=== PATIENT | female | born 1935 | race Caucasian/White ===

== ENCOUNTER 2018-01-10 17:49 | Inpatient (IN) | payer MEDICARE, BC ==
[~2018-01-10 17:49] MED LIST: metroNIDAZOLE/Normal Saline 500 MG in Premix Bag 1 BAG IV SCH
[2018-01-10] MEDS ORDERED: Sodium Chloride 0.9% 10 ML Syringe FLUSH PRN (18:30)
[2018-01-10] MEDS ORDERED: Sodium Chloride 0.9% 2.5 ML Syringe FLUSH PRN (18:30)
--- NOTE | 2018-01-10 18:33 | EDM.PDOC ---
ED HPI GENERAL MEDICAL PROBLEM - General Chief Complaint: Genitourinary Problem Stated Complaint: BLOOD IN URINE/LIGHT HEADED Time Seen by Provider: 01/10/18 18:26 - History of Present Illness INITIAL COMMENTS - FREE TEXT/NARRATIVE: HISTORY AND PHYSICAL: History of present illness: Patient is an 82-year-old white female history of atrial fibrillation who is on Maribell Eitzen presents with a concern of presumptive blood from her rectum she states she had a bowel movement in wiped and noticed that the water was somewhat bloody do not believe this is from her vagina or bladder. She has not had similar problems in the past she denies chest pain shortness of breath nausea vomiting abdominal pain or any other concern. Review of systems: As per history of present illness and below otherwise all systems reviewed and negative. Past medical history: As per history of present illness and as reviewed below otherwise noncontributory. Surgical history: As per history of present illness and as reviewed below otherwise noncontributory. Social history: No reported history of drug or alcohol abuse. Family history: As per history of present illness and as reviewed below otherwise noncontributory. Physical exam: HEENT: Atraumatic, normocephalic, pupils reactive, negative for conjunctival pallor or scleral icterus, mucous membranes moist, throat clear, neck supple, nontender, trachea midline. Lungs: Clear to auscultation, breath sounds equal bilaterally, chest nontender. Heart: S1S2, irregular, negative for clicks, rubs, or JVD. Abdomen: Soft, nondistended, nontender. Negative for masses or hepatosplenomegaly. Negative for costovertebral tenderness. Pelvis: Stable nontender. Genitourinary: Deferred. Rectal: Deferred. Extremities: Atraumatic, negative for cords or calf pain. Neurovascular unremarkable. Neuro: Awake, alert, oriented. Cranial nerves II through XII unremarkable. Cerebellum unremarkable. Motor and sensory unremarkable throughout. Exam nonfocal. Diagnostics: CBC CMP PT/INR UA urine culture and sensitivity chest x-ray CT abdomen and pelvis EKG Therapeutics: Saline at 125 mL an hour Impression: #1 history of blood per rectum #2 history of chronic atrial fibrillation Definitive disposition and diagnosis as appropriate pending reevaluation and review of above. - Related Data Allergies Allergy/AdvReac Type Severity Reaction Status Date / Time Penicillins Allergy Swelling Verified 03/16/18 19:35 pimecrolimus [From Elidel] Allergy Hives Verified 01/10/18 19:35 warfarin Allergy Lethargy Verified 01/10/18 19:35 clorimazole Allergy Itching Uncoded 07/07/16 04:20 Home Meds: Home Meds Aspirin 81 mg PO DAILY 07/07/16 [History] Calcium Phosphate Trib/Vit D3 [Calcium + Vitamin D3 Gummies] 1 each PO DAILY 08/12 [History] LORazepam 1 mg PO DAILY 07/07/16 [History] Levothyroxine Sodium [Synthroid] 125 mcg PO DAILY 07/07/16 [History] Loratadine [Claritin] 10 mg PO DAILY 07/07/16 [History] Lutein/Minerals/Vit A,C & E [Ocuvite] 1 tab PO DAILY 07/07/16 [History] Mometasone Furoate [Nasonex [place]] 17 gm ESTER DAILY 07/07/16 [History] Raloxifene [Evista] 60 mg PO DAILY 07/07/16 [History] Apixaban [Eliquis] 2 tab PO DAILY 01/10/18 [History] Diltiazem HCl [Diltiazem 24Hr Cd] 120 mg PO DAILY 01/10/18 [History] Famotidine [Pepcid] 20 mg PO BID 01/10/18 [History] Triamcinolone Acetonide [Triamcinolone Acetonide 0.025%] TOP BID 01/10/18 [ History] Past Medical History HEENT History: Reports: None Cardiovascular History: Reports: Hypertension, Other (See Below) Other Cardiovascular History: moderate to severe mitral valve heart leak Respiratory History: Reports: None Gastrointestinal History: Reports: GERD 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: Musculoskeletal History: Reports: None Neurological History: Reports: None Psychiatric History: Reports: None Endocrine/Metabolic History: Reports: Hypothyroidism Hematologic History: Reports: None Immunologic History: Reports: None Oncologic (Cancer) History: Reports: None Dermatologic History: Reports: None - Infectious Disease History Infectious Disease History: Reports: None - Past Surgical History Female Surgical History: Reports: Other (See Below) Musculoskeletal Surgical History: Reports: Carpal Tunnel, Other (See Below) Social & Family History - Family History Cardiac: Reports: Afib, Heart Failure, Hypertension, [place], Stent Musculoskeletal: Reports: Osteoporosis Endocrine/Metabolic: Reports: Diabetes, type II - Tobacco Use Smoking Status *Q: Never Smoker - Recreational Drug Use Recreational Drug Use: No ED ROS GENERAL - Review of Systems Review Of Systems: ROS reveals no pertinent complaints other than HPI. ED EXAM, GENERAL - Physical Exam Exam: See Below (See dictation) Course - Vital Signs Last Recorded V/S: Last Vital Signs Temp 36.2 C 01/10/18 20:34 Pulse 74 01/10/18 20:34 Resp 18 01/10/18 20:34 BP 142/57 H 01/10/18 20:34 Pulse Ox 97 01/10/18 20:34 - Orders/Labs/Meds Orders: Active Orders 24 hr Category Date Time Status EKG Documentation Completion [RC] STAT Care 01/10/18 18:29 Active Pulse Oximetry [RC] ASDIRECTED Care 01/10/18 18:29 Active Abdomen Pelvis wo Cont [CT] Stat Exams 01/10/18 18:30 Taken Chest 1V Frontal [CR] Stat Exams 01/10/18 18:30 Taken CULTURE URINE [RM] Stat Lab 01/10/18 19:47 Received Ciprofloxacin in D5W [Cipro in D5W 400 MG/200 ML] 400 Med 01/10/18 21:26 Active mg Premix Bag 1 bag IV NOW Sodium Chloride 0.9% [Normal Saline] 1,000 ml Med 01/10/18 18:30 Active IV STAT Sodium Chloride 0.9% [Saline Flush] Med 01/10/18 18:30 Active 10 ml FLUSH ASDIRECTED PRN Sodium Chloride 0.9% [Saline Flush] Med 01/10/18 18:30 Active 2.5 ml FLUSH ASDIRECTED PRN metroNIDAZOLE/Normal Saline [Flagyl 500 MG in NS 100 ML Med 01/10/18 21:27 Active ] 500 mg Premix Bag 1 bag IV ONETIME Saline Lock Insert [OM.PC] Stat Oth 01/10/18 18:29 Ordered Medication Orders Sodium Chloride (Normal Saline) 1,000 mls @ 125 mls/hr IV STAT JC Last Admin: 01/10/18 18:55 Dose: 125 mls/hr Ciprofloxacin/Dextrose 400 mg/ (Premix) 200 mls @ 200 mls/hr IV NOW STA Stop: 01/10/18 22:25 Metronidazole 500 mg/ Premix 100 mls @ 100 mls/hr IV ONETIME ONE Stop: 01/10/18 22:26 Sodium Chloride (Saline Flush) 10 ml FLUSH ASDIRECTED PRN PRN Reason: Keep Vein Open Sodium Chloride (Saline Flush) 2.5 ml FLUSH ASDIRECTED PRN PRN Reason: Keep Vein Open Labs: Laboratory Tests 01/10/18 01/10/18 01/10/18 Range/Units 18:37 18:37 18:37 WBC 15.03 H (4.0-11.0) K/uL RBC 4.47 (4.30-5.90) M/uL Hgb 14.0 (12.0-16.0) g/dL Hct 41.2 (36.0-46.0) % MCV 92.2 (80.0-98.0) fL MCH 31.3 (27.0-32.0) pg MCHC 34.0 (31.0-37.0) g/dL RDW Std Deviation 48.3 (28.0-62.0) fl RDW Coeff of [place] 14 (11.0-15.0) % Plt Count 290 (150-400) K/uL MPV 10.20 (7.40-12.00) fL Neut % (Auto) 75.9 (48.0-80.0) % Lymph % (Auto) 13.2 L (16.0-40.0) % [place] % (Auto) 9.9 (0.0-15.0) % Eos % (Auto) 0.7 (0.0-7.0) % Baso % (Auto) 0.3 (0.0-1.5) % Neut # (Auto) 11.4 H (1.4-5.7) K/uL Lymph # (Auto) 2.0 (0.6-2.4) K/uL [place] # (Auto) 1.5 H (0.0-0.8) K/uL Eos # (Auto) 0.1 (0.0-0.7) K/uL Baso # (Auto) 0.0 (0.0-0.1) K/uL Nucleated RBC % 0.0 /100WBC Nucleated RBCs # 0 K/uL INR 0.98 Sodium 137 (136-145) mmol/L Potassium 4.3 (3.5-5.1) mmol/L Chloride 102 (98-107) mmol/L Carbon Dioxide 25.6 (21.0-32.0) mmol/L BUN 17 (7.0-18.0) mg/dL Creatinine 0.8 (0.6-1.0) mg/dL Est Cr Clr Drug Dosing TNP Estimated GFR (MDRD) > 60.0 ml/min Glucose 104 (74-106) mg/dL Calcium 9.1 (8.5-10.1) mg/dL Total Bilirubin 0.3 (0.2-1.0) mg/dL AST 19 (15-37) IU/L ALT 17 (14-63) IU/L Alkaline Phosphatase 59 (46-116) U/L Total Protein 7.6 (6.4-8.2) g/dL Albumin 3.6 (3.4-5.0) g/dL Globulin 4.0 H (2.0-3.5) g/dL Albumin/Globulin Ratio 0.9 L (1.3-2.8) Urine Color Urine Appearance Urine pH (5.0-8.0) Ur Specific [place] (1.001-1.035) Urine Protein (NEGATIVE) mg/dL Urine Glucose (UA) (NEGATIVE) mg/dL Urine Ketones (NEGATIVE) mg/dL Urine Occult Blood (NEGATIVE) Urine Nitrite (NEGATIVE) Urine Bilirubin (NEGATIVE) Urine Urobilinogen (<2.0) EU/dL Ur Leukocyte Esterase (NEGATIVE) Urine RBC (0-2/HPF) Urine WBC (0-5/HPF) Ur Epithelial Cells (NONE-FEW) Urine Bacteria (NEGATIVE) Urine Mucus (NONE-MOD) Blood Type Antibody Screen 01/10/18 01/10/18 Range/Units 18:37 19:47 WBC (4.0-11.0) K/uL RBC (4.30-5.90) M/uL Hgb (12.0-16.0) g/dL Hct (36.0-46.0) % MCV (80.0-98.0) fL MCH (27.0-32.0) pg MCHC (31.0-37.0) g/dL RDW Std Deviation (28.0-62.0) fl RDW Coeff of [place] (11.0-15.0) % Plt Count (150-400) K/uL MPV (7.40-12.00) fL Neut % (Auto) (48.0-80.0) % Lymph % (Auto) (16.0-40.0) % [place] % (Auto) (0.0-15.0) % Eos % (Auto) (0.0-7.0) % Baso % (Auto) (0.0-1.5) % Neut # (Auto) (1.4-5.7) K/uL Lymph # (Auto) (0.6-2.4) K/uL [place] # (Auto) (0.0-0.8) K/uL Eos # (Auto) (0.0-0.7) K/uL Baso # (Auto) (0.0-0.1) K/uL Nucleated RBC % /100WBC Nucleated RBCs # K/uL INR Sodium (136-145) mmol/L Potassium (3.5-5.1) mmol/L Chloride (98-107) mmol/L Carbon Dioxide (21.0-32.0) mmol/L BUN (7.0-18.0) mg/dL Creatinine (0.6-1.0) mg/dL Est Cr Clr Drug Dosing Estimated GFR (MDRD) ml/min Glucose (74-106) mg/dL Calcium (8.5-10.1) mg/dL Total Bilirubin (0.2-1.0) mg/dL AST (15-37) IU/L ALT (14-63) IU/L Alkaline Phosphatase (46-116) U/L Total Protein (6.4-8.2) g/dL Albumin (3.4-5.0) g/dL Globulin (2.0-3.5) g/dL Albumin/Globulin Ratio (1.3-2.8) Urine Color YELLOW Urine Appearance CLEAR Urine pH 6.0 (5.0-8.0) Ur Specific [place] 1.025 (1.001-1.035) Urine Protein NEGATIVE (NEGATIVE) mg/dL Urine Glucose (UA) NEGATIVE (NEGATIVE) mg/dL Urine Ketones NEGATIVE (NEGATIVE) mg/dL Urine Occult Blood SMALL H (NEGATIVE) Urine Nitrite NEGATIVE (NEGATIVE) Urine Bilirubin NEGATIVE (NEGATIVE) Urine Urobilinogen 0.2 (<2.0) EU/dL Ur Leukocyte Esterase NEGATIVE (NEGATIVE) Urine RBC 2-4 (0-2/HPF) Urine WBC 0-2 (0-5/HPF) Ur Epithelial Cells FEW (NONE-FEW) Urine Bacteria FEW (NEGATIVE) Urine Mucus MANY (NONE-MOD) Blood Type O POSITIVE Antibody Screen NEGATIVE Meds: Medications Generic Name Dose Route Start Last Admin Trade Name Isaac PRN Reason Stop Dose Admin Sodium Chloride 1,000 mls @ 125 mls/hr 01/10/18 18:30 01/10/18 18:55 Normal Saline IV 125 mls/hr STAT JC Administration Ciprofloxacin/Dextrose 400 mg/ 200 mls @ 200 mls/hr 01/10/18 21:26 Premix IV 01/10/18 22:25 NOW STA Metronidazole 500 mg/ Premix 100 mls @ 100 mls/hr 01/10/18 21:27 IV 01/10/18 22:26 ONETIME ONE Sodium Chloride 10 ml 01/10/18 18:30 Saline Flush FLUSH ASDIRECTED PRN Keep Vein Open Sodium Chloride 2.5 ml 01/10/18 18:30 Saline Flush FLUSH ASDIRECTED PRN Keep Vein Open Discontinued Medications Generic Name Dose Route Start Last Admin Trade Name Isaac PRN Reason Stop Dose Admin Pantoprazole Sodium 80 mg 01/10/18 20:17 01/10/18 20:28 Protonix Iv IVPUSH 01/10/18 20:18 80 mg .BOLUS ONE Administration Departure - Departure Time of Disposition: 21:32 Disposition: Refer to Observation Condition: Good Clinical Impression: Colitis - Discharge Information Referrals: Hazel Rodriguez DO [Primary Care Provider] - Forms: ED Department Discharge - My Orders Last 24 Hours: My Active Orders 01/10/18 18:29 EKG Documentation Completion [RC] STAT Pulse Oximetry [RC] ASDIRECTED Saline Lock Insert [OM.PC] Stat 01/10/18 18:30 Abdomen Pelvis wo Cont [CT] Stat Chest 1V Frontal [CR] Stat Sodium Chloride 0.9% [Normal Saline] 1,000 ml IV STAT Sodium Chloride 0.9% [Saline Flush] 10 ml FLUSH ASDIRECTED PRN Sodium Chloride 0.9% [Saline Flush] 2.5 ml FLUSH ASDIRECTED PRN 01/10/18 19:47 CULTURE URINE [RM] Stat 01/10/18 21:26 Ciprofloxacin in D5W [Cipro in D5W 400 MG/200 ML] 400 mg Premix Bag 1 bag IV NOW 01/10/18 21:27 metroNIDAZOLE/Normal Saline [Flagyl 500 MG in NS 100 ML] 500 mg Premix Bag 1 bag IV ONETIME - Assessment/Plan Last 24 Hours: My Active Orders 01/10/18 18:29 EKG Documentation Completion [RC] STAT Pulse Oximetry [RC] ASDIRECTED Saline Lock Insert [OM.PC] Stat 01/10/18 18:30 Abdomen Pelvis wo Cont [CT] Stat Chest 1V Frontal [CR] Stat Sodium Chloride 0.9% [Normal Saline] 1,000 ml IV STAT Sodium Chloride 0.9% [Saline Flush] 10 ml FLUSH ASDIRECTED PRN Sodium Chloride 0.9% [Saline Flush] 2.5 ml FLUSH ASDIRECTED PRN 01/10/18 19:47 CULTURE URINE [RM] Stat 01/10/18 21:26 Ciprofloxacin in D5W [Cipro in D5W 400 MG/200 ML] 400 mg Premix Bag 1 bag IV NOW 01/10/18 21:27 metroNIDAZOLE/Normal Saline [Flagyl 500 MG in NS 100 ML] 500 mg Premix Bag 1 bag IV ONETIME
[2018-01-10] MEDS: Sodium Chloride 0.9% 1,000 ML IV SCH (18:55)
[2018-01-10 19:15] LABS: CHLORIDE,CL 102 mmol/L (98-107); SODIUM,NA 137 mmol/L (136-145)
[2018-01-10] MEDS ORDERED: Pantoprazole 40 MG Vial IVPUSH ONE (20:17)
[2018-01-10] MEDS ORDERED: Ciprofloxacin in D5W 400 MG in Premix Bag 1 BAG IV STA ×2 (21:26)
[2018-01-10] MEDS ORDERED: metroNIDAZOLE/Normal Saline 500 MG in Premix Bag 1 BAG IV ONE (21:27)
--- NOTE | 2018-01-10 22:18 | PCM.HP ---
H&P History of Present Illness - General Date of Service: 01/10/18 Admit Problem/Dx: Admission Diagnosis/Problem Admission Diagnosis/Problem Colitis Source of Information: Patient History Limitations: Reports: No Limitations - History of Present Illness Initial Comments - Free Text/Narative: 82-year-old female presenting emergency department with chief complaint of bright red blood per rectum 1 day with past medical history of paroxysmal A. fib on Eliquis, hypothyroidism, and GERD. Patient states that today she went to physical therapy in [place] for her lower back. On her way home she began to feel "ill". She laid down and at approximately 4 PM she had some diarrhea. When she wiped she noticed blood on the tissue and then noticed bright red blood in the toilet. States that she has had somewhat of a sore stomach but has been doing physical therapy to strengthen her core so attributed it to that. She denies any history of abdominal surgery other than a laparoscopic tubal ligation many years ago. She does have a history of diverticulosis and had a colonoscopy 8-10 years ago. Patient also has a history of proximal A. fib. States that this was diagnosed approximately 1 year ago. She initially was started on Coumadin but then had problems. She was switched to Eliquis which she has been taking and since then has not had any further issues. She states that she only had one episode of A. fib and then converted on her own back to normal sinus rhythm. She is on Cardizem for rate control. 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 States that she had a stress test as well as echocardiogram approximately 1 year ago. She has history of moderate to severe mitral regurg but states that it has been unchanged on echocardiogram. No reported orthopnea, paroxysmal nocturnal dyspnea, or pedal edema. Emergency department: Leukocytosis 15 K, unremarkable CMP, EKG normal sinus rhythm with no acute ST changes, urinalysis and INR unremarkable. CT abdomen and pelvis showing colitis involving the ascending colonoscopy. There was also left colonic diverticulosis without diverticulitis. There were a few renal cysts and subcentimeter low- density lesions. Also noted a L3 compression deformity with an ill-defined lucency underlying the superior endplate concerning for recent injury. Patient was admitted for colitis. Abdomen Pain Score (Numeric/FACES): 0 - Related Data Allergies/Adverse Reactions: Allergies Allergy/AdvReac Type Severity Reaction Status Date / Time Penicillins Allergy Swelling Verified 01/10/18 19:35 pimecrolimus [From Elidel] Allergy Hives Verified 01/10/18 19:35 warfarin Allergy Lethargy Verified 01/10/18 19:35 clorimazole Allergy Itching Uncoded 07/07/16 04:20 Home Medications: Home Meds Aspirin 81 mg PO DAILY 07/07/16 [History] Calcium Phosphate Trib/Vit D3 [Calcium + Vitamin D3 Gummies] 1 each PO DAILY 08/12 [History] LORazepam 1 mg PO DAILY 07/07/16 [History] Levothyroxine Sodium [Synthroid] 125 mcg PO DAILY 07/07/16 [History] Loratadine [Claritin] 10 mg PO DAILY 07/07/16 [History] Lutein/Minerals/Vit A,C & E [Ocuvite] 1 tab PO DAILY 07/07/16 [History] Mometasone Furoate [Nasonex [place]] 17 gm ESTER DAILY 07/07/16 [History] Raloxifene [Evista] 60 mg PO DAILY 07/07/16 [History] Apixaban [Eliquis] 2 tab PO DAILY 01/10/18 [History] Diltiazem HCl [Diltiazem 24Hr Cd] 120 mg PO DAILY 01/10/18 [History] Famotidine [Pepcid] 20 mg PO BID 01/10/18 [History] Triamcinolone Acetonide [Triamcinolone Acetonide 0.025%] TOP BID 01/10/18 [ History] Past Medical History HEENT History: Reports: None Cardiovascular History: Reports: Hypertension, Other (See Below) Other Cardiovascular History: moderate to severe mitral valve heart leak Respiratory History: Reports: None Gastrointestinal History: Reports: GERD Genitourinary History: Reports: None ELECTRICAL TECH History: Reports: Musculoskeletal History: Reports: None Neurological History: Reports: None Psychiatric History: Reports: None Endocrine/Metabolic History: Reports: Hypothyroidism Hematologic History: Reports: None Immunologic History: Reports: None Oncologic (Cancer) History: Reports: None Dermatologic History: Reports: None Other Dermatologic History: some type of chronic rash on her bottom - Infectious Disease History Infectious Disease History: Reports: None - Past Surgical History Female Surgical History: Reports: Other (See Below) Musculoskeletal Surgical History: Reports: Carpal Tunnel, Other (See Below) Social & Family History - Family History Family Medical History: Noncontributory Cardiac: Reports: Afib, Heart Failure, Hypertension, [place], Stent Musculoskeletal: Reports: Osteoporosis Endocrine/Metabolic: Reports: Diabetes, type II - Tobacco Use Smoking Status *Q: Never Smoker Second Hand Smoke Exposure: No - Caffeine Use Caffeine Use: Reports: Coffee - Recreational Drug Use Recreational Drug Use: No H&P Review of Systems - Review of Systems: Review Of Systems: See Below General: Reports: Fatigue. Denies: Fever, Chills, Malaise, Weakness HEENT: Denies: Dysphasia, Headaches, Sore Throat Pulmonary: Denies: Shortness of Breath, Wheezing, Cough Cardiovascular: Denies: Chest Pain, Palpitations, Edema Gastrointestinal: Reports: Bloody Stool, Diarrhea, Nausea. Denies: Abdominal Pain, Black Stool, Vomiting Genitourinary: Denies: Dysuria, Hematuria Musculoskeletal: Reports: Back Pain. Denies: Neck Pain Skin: Denies: Cyanosis Psychiatric: Denies: Confusion Neurological: Denies: Confusion, Dizziness, Headache Hematologic/Lymphatic: Denies: Anemia Immunologic: Denies: Anaphylaxis Exam - Exam Exam: See Below - Vital Signs Vital Signs: Last Vital Signs Temp 97.3 F 01/10/18 22:08 Pulse 77 01/10/18 22:08 Resp 18 01/10/18 22:08 BP 142/53 H 01/10/18 22:08 Pulse Ox 98 01/10/18 22:08 Weight: 79.379 kg - Exam Quality Assessment: DVT Prophylaxis General: Alert, Oriented, Cooperative HEENT: Conjunctiva Clear, EACs Clear, EOMI, Hearing Intact, Mucosa Moist & [place] , Nares Patent, Normal Nasal Septum, Posterior Pharynx Clear, PERRLA Neck: Supple, Trachea Midline, 2 Lungs: Clear to Auscultation, Normal Respiratory Effort Cardiovascular: Regular Rate, Regular Rhythm, Normal S1, Normal S2, Systolic Murmur (Grade 4) GI/Abdominal Exam: Normal Bowel Sounds, Soft, Non-Tender, No Organomegaly, No Distention (Female) Exam: Deferred Rectal (Female) Exam: Deferred Back Exam: Normal Inspection, Full Range of Motion, NT Extremities: Normal Inspection, Non-Tender, No Pedal Edema, Normal Capillary Refill Peripheral Pulses: 2+: Radial (L), Radial (R), Posterior Tibial (L), Posterior Tibial (R), Dorsalis Pedis (L), Dorsalis Pedis (R) Skin: Warm, Dry, Intact Neurological: Cranial Nerves Intact Neuro Extensive - Mental Status: Alert, Oriented x3, Normal Mood/Affect, Normal Cognition Neuro Extensive - Motor, Sensory, Reflexes: CN II-XII Intact Psychiatric: Alert, Normal Affect, Normal Mood - Patient Data Result Diagrams: 01/10/18 18:37 01/10/18 18:37 *Q Meaningful Use (ADM) - VTE *Q VTE Criteria *Q: - Stroke *Q Stroke Criteria *Q: - AMI *Q AMI Criteria *Q: - Problem List (1) Paroxysmal A-fib SNOMED Code(s): 051119036 ICD Code: I48.0 - PAROXYSMAL ATRIAL FIBRILLATION Status: Chronic Priority : Medium Current Visit: Yes (2) Chronic anticoagulation SNOMED Code(s): 668998419 ICD Code: Z79.01 - [facility] (CURRENT) USE OF ANTICOAGULANTS Status: Chronic Priority: High Current Visit: Yes (3) Bright red blood per rectum SNOMED Code(s): 835154448 ICD Code: K62.5 - HEMORRHAGE OF ANUS AND RECTUM Status: Acute Priority: High Current Visit: Yes (4) Hypothyroidism SNOMED Code(s): 88991707 ICD Code: E03.9 - HYPOTHYROIDISM, UNSPECIFIED Status: Chronic Priority: Low Current Visit: Yes Qualifiers: Hypothyroidism type: unspecified Qualified Code(s): E03.9 - Hypothyroidism , unspecified (5) GERD (gastroesophageal reflux disease) SNOMED Code(s): 703868745 ICD Code: K21.9 - GASTRO-ESOPHAGEAL REFLUX DISEASE WITHOUT ESOPHAGITIS Status: Chronic Priority: Low Current Visit: Yes Qualifiers: Esophagitis presence: esophagitis presence not specified Qualified Code(s) : K21.9 - Gastro-esophageal reflux disease without esophagitis (6) Colitis SNOMED Code(s): 34843233 ICD Code: K52.9 - NONINFECTIVE GASTROENTERITIS AND COLITIS, UNSPECIFIED Status: Acute Priority: High Current Visit: Yes Problem List Initiated/Reviewed/Updated: Yes Orders Last 24hrs: Medication Orders Sodium Chloride (Normal Saline) 1,000 mls @ 125 mls/hr IV STAT JC Last Admin: 01/10/18 18:55 Dose: 125 mls/hr Ciprofloxacin/Dextrose 400 mg/ (Premix) 200 mls @ 200 mls/hr IV NOW STA Stop: 01/10/18 22:25 Metronidazole 500 mg/ Premix 100 mls @ 100 mls/hr IV ONETIME ONE Stop: 01/10/18 22:26 Last Admin: 01/10/18 21:32 Dose: 100 mls/hr Sodium Chloride (Saline Flush) 10 ml FLUSH ASDIRECTED PRN PRN Reason: Keep Vein Open Sodium Chloride (Saline Flush) 2.5 ml FLUSH ASDIRECTED PRN PRN Reason: Keep Vein Open Assessment/Plan Comment:: 82-year-old female admitted 01/10/18 for colitis and bright red per rectum with past medical history of proximal A. fib on Alloclassic, hypothyroidism, and GERD. Colitis: Leukocytosis of 15 K. Will treat with Cipro and Flagyl. Patient placed nothing by mouth. Dr. Cherry, surgery, has been consulted. IV Zofran for nausea and vomiting. No active bleeding at this time H&H stable will monitor closely Proximal A. fib: Secondary to acute GI bleed will hold Eliquis. Will continue Cardizem for rate control with sips of water. Patient placed on telemetry. Currently in normal sinus rhythm. Hypothyroidism: Currently controlled we'll restart home medication GERD: Patient did receive 80 of Protonix in the emergency department, will hold oral medication at this time and monitor. VTE: SCD, no pharm secondary to acute GI bleed. Dispo: 1-2 days pending.
[2018-01-10] MEDS ORDERED: Ondansetron 4 MG/2 ML SDV IVPUSH PRN (22:35)
[2018-01-10] MEDS ORDERED: Morphine 2 MG/ML Syringe IVPUSH PRN (22:35)
[2018-01-11] MEDS ORDERED: metroNIDAZOLE/Normal Saline 500 MG in Premix Bag 1 BAG IV SCH ×2
[2018-01-11] MEDS: metroNIDAZOLE/Normal Saline 500 MG in Premix Bag 1 BAG IV SCH ×4 (04:09→21:40)
[2018-01-11 06:07] LABS: CHLORIDE,CL 107 mmol/L (98-107); SODIUM,NA 139 mmol/L (136-145)
[2018-01-11] MEDS: Sodium Chloride 0.9% 1,000 ML IV SCH ×2 (06:17→20:00)
[2018-01-11] MEDS: Levothyroxine 125 MCG Tab PO SCH (06:57)
--- NOTE | 2018-01-11 07:43 | PCM.PN ---
- General Info Date of Service: 01/11/18 Admission Dx/Problem (Free Text): Admission Diagnosis/Problem Admission Diagnosis/Problem Colitis Subjective Update: Doing well this morning. Reports blood in stool overnight. No fevers, nausea, vomiting, diarrhea. Mild right sided abdominal pain but controlled. No other complaints. Is hungry. Functional Status: Reports: Pain Controlled, Ambulating, Urinating - Review of Systems General: Denies: Fever, Weakness, Fatigue HEENT: Denies: Headaches, Visual Changes Pulmonary: Denies: Shortness of Breath, Cough, Sputum Cardiovascular: Denies: Chest Pain, Palpitations, Edema Gastrointestinal: Reports: Abdominal Pain. Denies: Constipation, Diarrhea, Nausea, Vomiting Genitourinary: Denies: Dysuria, Hematuria Musculoskeletal: Denies: Neck Pain Skin: Denies: Cyanosis Neurological: Denies: Confusion, Dizziness, Headache Psychiatric: Denies: Confusion - Patient Data Vitals - Most Recent: Last Vital Signs Temp 98.5 F 01/11/18 04:00 Pulse 87 01/11/18 04:00 Resp 18 01/11/18 04:00 BP 138/63 01/11/18 04:00 Pulse Ox 95 01/11/18 04:00 Weight - Most Recent: 79.379 kg I&O - Last 24 Hours: Intake & Output 01/10/18 01/11/18 01/11/18 22:59 06:59 14:59 Intake Total 100 1300 Output Total 400 Balance 100 900 Lab Results Last 24 Hours: Laboratory Results - last 24 hr 01/11/18 01/11/18 Range/Units 05:05 05:05 WBC 15.75 H (4.0-11.0) K/uL RBC 4.00 L (4.30-5.90) M/uL Hgb 12.3 (12.0-16.0) g/dL Hct 36.8 (36.0-46.0) % MCV 92.0 (80.0-98.0) fL MCH 30.8 (27.0-32.0) pg MCHC 33.4 (31.0-37.0) g/dL RDW Std Deviation 48.6 (28.0-62.0) fl RDW Coeff of Berto 14 (11.0-15.0) % Plt Count 253 (150-400) K/uL MPV 10.50 (7.40-12.00) fL Neut % (Auto) 78.6 (48.0-80.0) % Lymph % (Auto) 10.0 L (16.0-40.0) % Ness % (Auto) 10.9 (0.0-15.0) % Eos % (Auto) 0.4 (0.0-7.0) % Baso % (Auto) 0.1 (0.0-1.5) % Neut # (Auto) 12.4 H (1.4-5.7) K/uL Lymph # (Auto) 1.6 (0.6-2.4) K/uL Ness # (Auto) 1.7 H (0.0-0.8) K/uL Eos # (Auto) 0.1 (0.0-0.7) K/uL Baso # (Auto) 0.0 (0.0-0.1) K/uL Nucleated RBC % 0.0 /100WBC Nucleated RBCs # 0 K/uL Sodium 139 (136-145) mmol/L Potassium 3.8 (3.5-5.1) mmol/L Chloride 107 (98-107) mmol/L Carbon Dioxide 25.2 (21.0-32.0) mmol/L BUN 12 (7.0-18.0) mg/dL Creatinine 0.7 (0.6-1.0) mg/dL Est Cr Clr Drug Dosing 59.01 mL/min Estimated GFR (MDRD) > 60.0 ml/min Glucose 103 (74-106) mg/dL Calcium 8.3 L (8.5-10.1) mg/dL Magnesium 1.3 L (1.5-2.0) mg/dL Med Orders - Current: Current Medications Diltiazem HCl (Cardizem Cd) 120 mg PO DAILY JC Sodium Chloride (Normal Saline) 1,000 mls @ 125 mls/hr IV STAT JC Last Admin: 01/11/18 06:17 Dose: 125 mls/hr Ciprofloxacin/Dextrose 400 mg/ (Premix) 200 mls @ 200 mls/hr IV Q12H JC Metronidazole 500 mg/ Premix 100 mls @ 100 mls/hr IV Q6H JC Last Infusion: 01/11/18 05:10 Dose: Infused Levothyroxine Sodium (Levothyroxine) 125 mcg PO ACBREAKFAST [facility] Last Admin: 01/11/18 06:57 Dose: 125 mcg Morphine Sulfate (Morphine) 2 mg IVPUSH Q2H PRN PRN Reason: Pain (severe 7-10) Stop: 01/11/18 22:36 Ondansetron HCl (Zofran) 4 mg IVPUSH Q4H PRN PRN Reason: Nausea Sodium Chloride (Saline Flush) 10 ml FLUSH ASDIRECTED PRN PRN Reason: Keep Vein Open Sodium Chloride (Saline Flush) 2.5 ml FLUSH ASDIRECTED PRN PRN Reason: Keep Vein Open Discontinued Medications Ciprofloxacin/Dextrose 400 mg/ (Premix) 200 mls @ 200 mls/hr IV NOW STA Stop: 01/10/18 22:25 Last Admin: 01/10/18 22:52 Dose: 200 mls/hr Metronidazole 500 mg/ Premix 100 mls @ 100 mls/hr IV ONETIME ONE Stop: 01/10/18 22:26 Last Infusion: 01/10/18 22:35 Dose: Infused Mometasone Furoate (Nasonex [place]) 17 gm ESTER DAILY [facility] Pantoprazole Sodium (Protonix Iv) 80 mg IVPUSH .BOLUS ONE Stop: 01/10/18 20:18 Last Admin: 01/10/18 20:28 Dose: 80 mg - Exam Quality Assessment: DVT Prophylaxis General: Alert, Oriented, Cooperative, No Acute Distress HEENT: Pupils Equal, Pupils Reactive, EOMI, Mucous Membr. Moist/[place] Neck: Supple, Trachea Midline, No JVD Lungs: Clear to Auscultation, Normal Respiratory Effort Cardiovascular: Regular Rate, Regular Rhythm, Murmurs GI/Abdominal Exam: Normal Bowel Sounds, Soft, Non-Tender, No Organomegaly, No Distention (Female) Exam: Deferred Back Exam: Normal Inspection Extremities: Normal Inspection, Non-Tender, No Pedal Edema, Normal Capillary Refill Peripheral Pulses: 2+: Radial (L), Radial (R), Posterior Tibial (L), Posterior Tibial (R), Dorsalis Pedis (L), Dorsalis Pedis (R) Skin: Warm, Dry, Intact Neurological: No New Focal Deficit Psy/Mental Status: Alert, Normal Affect, Normal Mood - Problem List & Annotations (1) Paroxysmal A-fib SNOMED Code(s): 826474273 Code(s): I48.0 - PAROXYSMAL ATRIAL FIBRILLATION Status: Chronic Priority : Medium Current Visit: Yes (2) Chronic anticoagulation SNOMED Code(s): 078415762 Code(s): Z79.01 - NURSING HOME (CURRENT) USE OF ANTICOAGULANTS Status: Chronic Priority: High Current Visit: Yes (3) Bright red blood per rectum SNOMED Code(s): 104441104 Code(s): K62.5 - HEMORRHAGE OF ANUS AND RECTUM Status: Acute Priority: High Current Visit: Yes (4) Hypothyroidism SNOMED Code(s): 82815861 Code(s): E03.9 - HYPOTHYROIDISM, UNSPECIFIED Status: Chronic Priority: Low Current Visit: Yes Qualifiers: Hypothyroidism type: unspecified Qualified Code(s): E03.9 - Hypothyroidism , unspecified (5) GERD (gastroesophageal reflux disease) SNOMED Code(s): 708785251 Code(s): K21.9 - GASTRO-ESOPHAGEAL REFLUX DISEASE WITHOUT ESOPHAGITIS Status: Chronic Priority: Low Current Visit: Yes Qualifiers: Esophagitis presence: esophagitis presence not specified Qualified Code(s) : K21.9 - Gastro-esophageal reflux disease without esophagitis (6) Colitis SNOMED Code(s): 11751051 Code(s): K52.9 - NONINFECTIVE GASTROENTERITIS AND COLITIS, UNSPECIFIED Status: Acute Priority: High Current Visit: Yes - Problem List Review Problem List Initiated/Reviewed/Updated: Yes - My Orders Last 24 Hours: My Active Orders 01/10/18 22:35 Patient Status [ADT] Routine Vital Signs [RC] Q4H Consult to Physician [CONS] Routine Morphine 2 mg IVPUSH Q2H PRN Ondansetron [Zofran] 4 mg IVPUSH Q4H PRN Resuscitation Status Routine 01/10/18 22:36 Sequential Compression Device [OM.PC] Per Unit Routine 01/10/18 23:00 Telemetry Monitoring [Cardiac Monitoring] [RC] Q8H 01/11/18 04:00 metroNIDAZOLE/Normal Saline [Flagyl 500 MG in NS 100 ML] 500 mg Premix Bag 1 bag IV Q6H 01/11/18 07:30 Levothyroxine 125 mcg PO ACBREAKFAST 01/11/18 08:00 Ciprofloxacin in D5W [Cipro in D5W 400 MG/200 ML] 400 mg Premix Bag 1 bag IV Q12H 01/11/18 09:00 Diltiazem [Cardizem CD] 120 mg PO DAILY 01/12/18 05:11 BASIC METABOLIC PANEL,BMP [CHEM] AM CBC WITH AUTO DIFF [HEME] AM 01/13/18 05:11 BASIC METABOLIC PANEL,BMP [CHEM] AM CBC WITH AUTO DIFF [HEME] AM - Plan Plan:: 82-year-old female admitted 01/10/18 for colitis and bright red per rectum with past medical history of proximal A. fib on Alloclassic, hypothyroidism, and GERD. Colitis: Leukocytosis of 15 K. Cont. Cipro and Flagyl day 2. Afebrile overnight. Will advance diet to clear today as per surgery Dr. Cherry. IV Zofran for nausea and vomiting. No active bleeding at this time H&H stable will monitor closely Proximal A. fib: Secondary to acute GI bleed will hold Eliquis. Restart all home meds today with advanced diet. Cont. telemetry. Replaced Mag this am will get repeat mag in afternoon with goal >2.0 for a-fib. Currently in normal sinus rhythm. Hypothyroidism: Currently controlled we'll restart home medication GERD: Controlled restart home meds now with clear liquids. VTE: SCD, no pharm secondary to acute GI bleed. Dispo: 1-2 days pending.
[2018-01-11] MEDS: Diltiazem 120 MG Cap.CD PO SCH (08:04)
[2018-01-11] MEDS: Ciprofloxacin in D5W 400 MG in Premix Bag 1 BAG IV SCH ×4 (08:07→19:48)
[2018-01-11] MEDS ORDERED: Magnesium Sulfate/Water 4 GM in Premix Bag 1 BAG IV ONE (08:12)
[2018-01-11] MEDS ORDERED: Mometasone Furoate Nasal Spray 17 GM Canister NAS SCH (09:00)
--- NOTE | 2018-01-11 11:35 | PCM.CONS ---
<Jan White - Last Filed: 01/11/18 11:30> H&P History of Present Illness - General Date of Service: 01/11/18 Admit Problem/Dx: Admission Diagnosis/Problem Admission Diagnosis/Problem Colitis Source of Information: Patient History Limitations: Reports: No Limitations - History of Present Illness Initial Comments - Free Text/Narative: 82 y/o female admitted 01/10/18 for hematochezia. She was at PT yesterday. On her way home, she felt mildly nauseous and light-headed. Once home, she had a bloody bowel movement, then presented to the ED, where she states she had 2 more bloody stools. She was admitted by the medicine service and had 2 more bloody stools this morning, for a total of 5 bloody stools. The stools have been a mixture of clot and fresh red blood. The volume of stool has varied from small to large. She otherwise feels well. Currently denies nausea, vomiting, fever, chills, chest pain, dyspnea, hematemesis. Hgb has been fairly stable, currently 12.3 from 14. She is hemodynamically stable and non-toxic. She denies any significant abdominal pain. She had a colonoscopy about 20 years ago, which she states showed 3 adenomatous polyps. She had repeat scopes at 4 years, then 8 years (from initial scope), which she states were negative other than diverticulosis. She denies any previous history of GI bleeding and weight loss. Symptom Onset Date: 01/10/18 Abdomen Pain Score (Numeric/FACES): 0 - Related Data Allergies/Adverse Reactions: Allergies Allergy/AdvReac Type Severity Reaction Status Date / Time Penicillins Allergy Swelling Verified 01/10/18 19:35 pimecrolimus [From Elidel] Allergy Hives Verified 01/10/18 19:35 warfarin Allergy Lethargy Verified 01/10/18 19:35 clorimazole Allergy Itching Uncoded 07/07/16 04:20 Home Medications: Home Meds Aspirin 81 mg PO DAILY 07/07/16 [History] Calcium Phosphate Trib/Vit D3 [Calcium + Vitamin D3 Gummies] 1 each PO DAILY 08/12 [History] LORazepam 1 mg PO DAILY 07/07/16 [History] Levothyroxine Sodium [Synthroid] 125 mcg PO DAILY 07/07/16 [History] Loratadine [Claritin] 10 mg PO DAILY 07/07/16 [History] Lutein/Minerals/Vit A,C & E [Ocuvite] 1 tab PO DAILY 07/07/16 [History] Mometasone Furoate [Nasonex [place]] 17 gm ESTER DAILY 07/07/16 [History] Raloxifene [Evista] 60 mg PO DAILY 07/07/16 [History] Apixaban [Eliquis] 2 tab PO DAILY 01/10/18 [History] Diltiazem HCl [Diltiazem 24Hr Cd] 120 mg PO DAILY 01/10/18 [History] Famotidine [Pepcid] 20 mg PO BID 01/10/18 [History] Triamcinolone Acetonide [Triamcinolone Acetonide 0.025%] TOP BID 01/10/18 [ History] Past Medical History HEENT History: Reports: None Cardiovascular History: Reports: Afib (paroxysmal, on eliquis (currently held)) , Hypertension, Other (See Below) Other Cardiovascular History: moderate to severe mitral valve heart leak Respiratory History: Reports: None Gastrointestinal History: Reports: Diverticulosis Genitourinary History: Reports: None [employer] History: Reports: Musculoskeletal History: Reports: None Neurological History: Reports: None Psychiatric History: Reports: None Endocrine/Metabolic History: Reports: Hypothyroidism Hematologic History: Reports: None Immunologic History: Reports: None Oncologic (Cancer) History: Reports: None Dermatologic History: Reports: None Other Dermatologic History: some type of chronic rash on her bottom - Infectious Disease History Infectious Disease History: Reports: None - Past Surgical History Female Surgical History: Reports: Tubal Ligation Musculoskeletal Surgical History: Reports: Carpal Tunnel, Other (See Below) Social & Family History - Family History Family Medical History: Noncontributory Cardiac: Reports: Afib, Heart Failure, Hypertension, [place], Stent Musculoskeletal: Reports: Osteoporosis Endocrine/Metabolic: Reports: Diabetes, type II - Tobacco Use Smoking Status *Q: Never Smoker Second Hand Smoke Exposure: No - Caffeine Use Caffeine Use: Reports: Coffee - Recreational Drug Use Recreational Drug Use: No H&P Review of Systems - Review of Systems: Review Of Systems: See Below General: Reports: No Symptoms HEENT: Reports: No Symptoms Pulmonary: Reports: No Symptoms Cardiovascular: Reports: Palpitations, Lightheadedness Gastrointestinal: Reports: Bloody Stool, Hematochezia Genitourinary: Reports: No Symptoms Musculoskeletal: Reports: Back Pain Skin: Reports: No Symptoms Psychiatric: Reports: No Symptoms Neurological: Reports: No Symptoms Hematologic/Lymphatic: Reports: Other (anticoagulated with eliquis) Immunologic: Reports: No Symptoms Exam - Exam Exam: See Below - Vital Signs Vital Signs: Last Vital Signs Temp 37.1 C 01/11/18 08:00 Pulse 81 01/11/18 08:04 Resp 14 01/11/18 08:00 BP 133/67 01/11/18 08:04 Pulse Ox 93 L 01/11/18 08:00 Weight: 175 lb - Exam General: Alert, Oriented, Cooperative HEENT: EOMI, Hearing Intact Neck: Supple Lungs: Clear to Auscultation, Normal Respiratory Effort Cardiovascular: Regular Rate, Regular Rhythm, Systolic Murmur GI/Abdominal Exam: Normal Bowel Sounds, Soft, Non-Tender, No Distention, No Mass (Female) Exam: Deferred Rectal (Female) Exam: Deferred Extremities: Normal Inspection, No Pedal Edema Skin: Warm, Dry Neurological: Normal Speech Neuro Extensive - Mental Status: Alert, Oriented x3, Normal Mood/Affect, Normal Cognition, Memory Intact Psychiatric: Alert, Normal Affect, Normal Mood - Patient Data Lab Results Last 24 hrs: Laboratory Results - last 24 hr 01/11/18 01/11/18 Range/Units 05:05 05:05 WBC 15.75 H (4.0-11.0) K/uL RBC 4.00 L (4.30-5.90) M/uL Hgb 12.3 (12.0-16.0) g/dL Hct 36.8 (36.0-46.0) % MCV 92.0 (80.0-98.0) fL MCH 30.8 (27.0-32.0) pg MCHC 33.4 (31.0-37.0) g/dL RDW Std Deviation 48.6 (28.0-62.0) fl RDW Coeff of Berto 14 (11.0-15.0) % Plt Count 253 (150-400) K/uL MPV 10.50 (7.40-12.00) fL Neut % (Auto) 78.6 (48.0-80.0) % Lymph % (Auto) 10.0 L (16.0-40.0) % [place] % (Auto) 10.9 (0.0-15.0) % Eos % (Auto) 0.4 (0.0-7.0) % Baso % (Auto) 0.1 (0.0-1.5) % Neut # (Auto) 12.4 H (1.4-5.7) K/uL Lymph # (Auto) 1.6 (0.6-2.4) K/uL [place] # (Auto) 1.7 H (0.0-0.8) K/uL Eos # (Auto) 0.1 (0.0-0.7) K/uL Baso # (Auto) 0.0 (0.0-0.1) K/uL Nucleated RBC % 0.0 /100WBC Nucleated RBCs # 0 K/uL Sodium 139 (136-145) mmol/L Potassium 3.8 (3.5-5.1) mmol/L Chloride 107 (98-107) mmol/L Carbon Dioxide 25.2 (21.0-32.0) mmol/L BUN 12 (7.0-18.0) mg/dL Creatinine 0.7 (0.6-1.0) mg/dL Est Cr Clr Drug Dosing 59.01 mL/min Estimated GFR (MDRD) > 60.0 ml/min Glucose 103 (74-106) mg/dL Calcium 8.3 L (8.5-10.1) mg/dL Magnesium 1.3 L (1.5-2.0) mg/dL Result Diagrams: 01/11/18 05:05 01/11/18 05:05 Reg Results Last 24 hrs: Microbiology 01/11/18 09:48 Stool Occult Blood (REG) - Final Stool / Feces Consult PN Assessment/Plan Procedures: Procedures ASSAY OF CK (CPK) (07/07/16) ASSAY OF TROPONIN QUANT (07/07/16) ASSAY THYROID STIM HORMONE (07/07/16) CHEST X-RAY 1 VIEW FRONTAL (07/07/16) COMPLETE CBC W/AUTO DIFF WBC (07/07/16) COMPREHEN METABOLIC PANEL (07/07/16) CREATINE MB FRACTION (07/07/16) ELECTROCARDIOGRAM TRACING (07/07/16) EMERGENCY DEPT VISIT (07/07/16) FIBRIN DEGRADATION QUANT (07/07/16) HYDRATE IV INFUSION ADD-ON (07/07/16) PROTHROMBIN TIME (07/07/16) ROUTINE VENIPUNCTURE (07/07/16) THER/PROPH/DIAG INJ IV PUSH (07/07/16) TTE W/DOPPLER COMPLETE (07/10/17) X-RAY EXAM OF HIP (03/01/15) X-RAY EXAM OF PELVIS (03/01/15) (1) Diverticulosis of colon SNOMED Code(s): 204924619 Code(s): K57.30 - DVRTCLOS OF LG INT W/O PERFORATION OR ABSCESS W/O BLEEDING Current Visit: Yes (2) Bright red blood per rectum SNOMED Code(s): 571740413 Code(s): K62.5 - HEMORRHAGE OF ANUS AND RECTUM Priority: High Current Visit: Yes (3) Colitis SNOMED Code(s): 68523322 Code(s): K52.9 - NONINFECTIVE GASTROENTERITIS AND COLITIS, UNSPECIFIED Priority: High Current Visit: Yes (4) Chronic anticoagulation SNOMED Code(s): 856081103 Code(s): Z79.01 - SHELTER (CURRENT) USE OF ANTICOAGULANTS Priority: High Current Visit: Yes (5) Paroxysmal A-fib SNOMED Code(s): 780236866 Code(s): I48.0 - PAROXYSMAL ATRIAL FIBRILLATION Priority: Medium Current Visit: Yes Problem List Initiated/Reviewed/Updated: Yes Plan: She is currently hemodynamically stable and non-toxic. She has not required transfusion of any blood product, and her hemoglobin has remained fairly stable , 12.3 from 14 on admission. At this time, would recommend continue with conservative management, IVF, blood products PRN. No plan for urgent surgical intervention, so would be ok from our perspective to start full liquid diet and advance as tolerated. If her condition deteriorates, would recommend transfer to larger facility, given her significant cardiac comorbidities. As far as long- term planning, would recommend she follow up with surgery or GI in about 6 weeks for colonoscopy to fully evaluate the colon. Would recommend referral to GI or surgery wherever she follows with cardiology, that way those teams are familiar with her, should any issues or complications arise. Thank you and please call with any further questions or concerns. Requesting Provider: Dr. Holland Date Consult Requested: 01/10/18 Reason for Consult: Colitis and hematochezia Patient History Reviewed: Yes Admission H&P Reviewed: Yes Notified Requestor: Yes Time Spent (in minutes): 30 <Faraz Cherry Linda - Last Filed: 01/11/18 12:03> H&P History of Present Illness - General Admit Problem/Dx: Admission Diagnosis/Problem Admission Diagnosis/Problem Colitis Exam - Vital Signs Vital Signs: Last Vital Signs Temp 98.8 F 01/11/18 08:00 Pulse 81 01/11/18 08:04 Resp 14 01/11/18 08:00 BP 133/67 01/11/18 08:04 Pulse Ox 93 L 01/11/18 08:00 - Patient Data Lab Results Last 24 hrs: Laboratory Results - last 24 hr 01/11/18 01/11/18 Range/Units 05:05 05:05 WBC 15.75 H (4.0-11.0) K/uL RBC 4.00 L (4.30-5.90) M/uL Hgb 12.3 (12.0-16.0) g/dL Hct 36.8 (36.0-46.0) % MCV 92.0 (80.0-98.0) fL MCH 30.8 (27.0-32.0) pg MCHC 33.4 (31.0-37.0) g/dL RDW Std Deviation 48.6 (28.0-62.0) fl RDW Coeff of Berto 14 (11.0-15.0) % Plt Count 253 (150-400) K/uL MPV 10.50 (7.40-12.00) fL Neut % (Auto) 78.6 (48.0-80.0) % Lymph % (Auto) 10.0 L (16.0-40.0) % [place] % (Auto) 10.9 (0.0-15.0) % Eos % (Auto) 0.4 (0.0-7.0) % Baso % (Auto) 0.1 (0.0-1.5) % Neut # (Auto) 12.4 H (1.4-5.7) K/uL Lymph # (Auto) 1.6 (0.6-2.4) K/uL [place] # (Auto) 1.7 H (0.0-0.8) K/uL Eos # (Auto) 0.1 (0.0-0.7) K/uL Baso # (Auto) 0.0 (0.0-0.1) K/uL Nucleated RBC % 0.0 /100WBC Nucleated RBCs # 0 K/uL Sodium 139 (136-145) mmol/L Potassium 3.8 (3.5-5.1) mmol/L Chloride 107 (98-107) mmol/L Carbon Dioxide 25.2 (21.0-32.0) mmol/L BUN 12 (7.0-18.0) mg/dL Creatinine 0.7 (0.6-1.0) mg/dL Est Cr Clr Drug Dosing 59.01 mL/min Estimated GFR (MDRD) > 60.0 ml/min Glucose 103 (74-106) mg/dL Calcium 8.3 L (8.5-10.1) mg/dL Magnesium 1.3 L (1.5-2.0) mg/dL Result Diagrams: 01/11/18 05:05 01/11/18 05:05 Reg Results Last 24 hrs: Microbiology 01/11/18 09:48 Stool Occult Blood (REG) - Final Stool / Feces Consult PN Assessment/Plan Procedures: Procedures ASSAY OF CK (CPK) (07/07/16) ASSAY OF TROPONIN QUANT (07/07/16) ASSAY THYROID STIM HORMONE (07/07/16) CHEST X-RAY 1 VIEW FRONTAL (07/07/16) COMPLETE CBC W/AUTO DIFF WBC (07/07/16) COMPREHEN METABOLIC PANEL (07/07/16) CREATINE MB FRACTION (07/07/16) ELECTROCARDIOGRAM TRACING (07/07/16) EMERGENCY DEPT VISIT (07/07/16) FIBRIN DEGRADATION QUANT (07/07/16) HYDRATE IV INFUSION ADD-ON (07/07/16) PROTHROMBIN TIME (07/07/16) ROUTINE VENIPUNCTURE (07/07/16) THER/PROPH/DIAG INJ IV PUSH (07/07/16) TTE W/DOPPLER COMPLETE (07/10/17) X-RAY EXAM OF HIP (03/01/15) X-RAY EXAM OF PELVIS (03/01/15) Problem List Initiated/Reviewed/Updated: Yes Plan: Patient seen and examined with Dr. White. I agree with his assessment and plan.
[2018-01-11] MEDS ORDERED: Loratadine 10 MG Tab PO SCH (12:15)
[2018-01-11] MEDS: Famotidine 20 MG Tab PO SCH ×2 (12:57→20:52)
[2018-01-11] MEDS: Loratadine 10 MG Tab PO SCH (20:52)
[2018-01-11] MEDS: LORazepam 1 MG Tab PO SCH (20:53)
[2018-01-12] MEDS: metroNIDAZOLE/Normal Saline 500 MG in Premix Bag 1 BAG IV SCH ×4 (04:42→22:41)
[2018-01-12] MEDS: Levothyroxine 125 MCG Tab PO SCH (06:41)
[2018-01-12 06:44] LABS: CHLORIDE,CL 110 mmol/L (98-107); SODIUM,NA 142 mmol/L (136-145)
[2018-01-12] MEDS: Sodium Chloride 0.9% 1,000 ML IV SCH (07:13)
[2018-01-12] MEDS ORDERED: Calcium Carbonate 500 MG Tab.Chew PO ONE (07:33)
[2018-01-12] MEDS ORDERED: Potassium Chloride 20 MEQ Tab.ER PO ONE (07:34)
--- NOTE | 2018-01-12 07:36 | PCM.PN ---
- General Info Date of Service: 01/12/18 Admission Dx/Problem (Free Text): Admission Diagnosis/Problem Admission Diagnosis/Problem Colitis Subjective Update: Doing well this am. Did have some light blood and dark stool last evening. Some mild right sided abd pain. Tolerating full liquid diet. Denies chest pain , palpitation, shortness breath, syncopal episodes, or focal neurologic deficits. Functional Status: Reports: Pain Controlled, Tolerating Diet, Ambulating, Urinating - Review of Systems General: Denies: Fever, Weakness, Fatigue, Malaise HEENT: Denies: Headaches, Visual Changes Pulmonary: Denies: Shortness of Breath, Pleuritic Chest Pain, Cough Cardiovascular: Denies: Chest Pain, Palpitations, Edema Gastrointestinal: Reports: Abdominal Pain. Denies: Diarrhea, Nausea, Vomiting Genitourinary: Denies: Dysuria, Hematuria Musculoskeletal: Denies: Neck Pain, Leg Pain Skin: Denies: Cyanosis Neurological: Denies: Confusion, Dizziness, Headache Psychiatric: Denies: Confusion - Patient Data Vitals - Most Recent: Last Vital Signs Temp 98.1 F 01/12/18 04:00 Pulse 81 01/12/18 04:00 Resp 15 01/12/18 04:00 BP 128/63 01/12/18 04:00 Pulse Ox 92 L 01/12/18 04:00 Weight - Most Recent: 79.379 kg I&O - Last 24 Hours: Intake & Output 01/11/18 01/12/18 01/12/18 22:59 06:59 14:59 Intake Total 900 120 Output Total 1000 1000 Balance -100 -880 Lab Results Last 24 Hours: Laboratory Results - last 24 hr 01/11/18 01/12/18 01/12/18 Range/Units 12:55 05:45 05:45 WBC 14.28 H (4.0-11.0) K/uL RBC 3.55 L (4.30-5.90) M/uL Hgb 10.9 L (12.0-16.0) g/dL Hct 33.0 L (36.0-46.0) % MCV 93.0 (80.0-98.0) fL MCH 30.7 (27.0-32.0) pg MCHC 33.0 (31.0-37.0) g/dL RDW Std Deviation 50.1 (28.0-62.0) fl RDW Coeff of Berto 15 (11.0-15.0) % Plt Count 232 (150-400) K/uL MPV 10.40 (7.40-12.00) fL Neut % (Auto) 71.4 (48.0-80.0) % Lymph % (Auto) 15.3 L (16.0-40.0) % [place] % (Auto) 11.5 (0.0-15.0) % Eos % (Auto) 1.5 (0.0-7.0) % Baso % (Auto) 0.3 (0.0-1.5) % Neut # (Auto) 10.2 H (1.4-5.7) K/uL Lymph # (Auto) 2.2 (0.6-2.4) K/uL [place] # (Auto) 1.6 H (0.0-0.8) K/uL Eos # (Auto) 0.2 (0.0-0.7) K/uL Baso # (Auto) 0.0 (0.0-0.1) K/uL Nucleated RBC % 0.0 /100WBC Nucleated RBCs # 0 K/uL Sodium 142 (136-145) mmol/L Potassium 3.4 L (3.5-5.1) mmol/L Chloride 110 H (98-107) mmol/L Carbon Dioxide 23.6 (21.0-32.0) mmol/L BUN 6 L (7.0-18.0) mg/dL Creatinine 0.7 (0.6-1.0) mg/dL Est Cr Clr Drug Dosing 59.01 mL/min Estimated GFR (MDRD) > 60.0 ml/min Glucose 95 (74-106) mg/dL Calcium 7.9 L (8.5-10.1) mg/dL Magnesium 2.7 H (1.5-2.0) mg/dL Reg Results Last 24 Hours: Microbiology 01/11/18 09:48 Stool Occult Blood (REG) - Final Stool / Feces Med Orders - Current: Current Medications Aspirin (Aspirin) 81 mg PO DAILY [facility] Calcium Carbonate (Caltrate 600+D 1500 Mg-400 Units) 1 tab PO DAILY [facility] Calcium Carbonate/Glycine (Tums) 1,000 mg PO ONETIME ONE Stop: 01/12/18 07:34 Diltiazem HCl (Cardizem Cd) 120 mg PO DAILY [facility] Last Admin: 01/11/18 08:04 Dose: 120 mg Famotidine (Pepcid) 20 mg PO BID [facility] Last Admin: 01/11/18 20:52 Dose: 20 mg Sodium Chloride (Normal Saline) 1,000 mls @ 125 mls/hr IV STAT [facility] Last Admin: 01/12/18 07:13 Dose: 125 mls/hr Ciprofloxacin/Dextrose 400 mg/ (Premix) 200 mls @ 200 mls/hr IV Q12H [facility] Last Admin: 01/11/18 19:48 Dose: 200 mls/hr Metronidazole 500 mg/ Premix 100 mls @ 100 mls/hr IV Q6H [facility] Last Admin: 01/12/18 04:42 Dose: 100 mls/hr Levothyroxine Sodium (Levothyroxine) 125 mcg PO ACBREAKFAST [facility] Last Admin: 01/12/18 06:41 Dose: 125 mcg Loratadine (Claritin) 10 mg PO BEDTIME [facility] Last Admin: 01/11/18 20:52 Dose: 10 mg Lorazepam (Ativan) 1 mg PO BEDTIME [facility] Last Admin: 01/11/18 20:53 Dose: 0.5 mg Ondansetron HCl (Zofran) 4 mg IVPUSH Q4H PRN PRN Reason: Nausea Potassium Chloride (Klor-Con M20) 40 meq PO ONETIME ONE Stop: 01/12/18 07:35 Raloxifene HCl (Evista) 60 mg PO DAILY [facility] Sodium Chloride (Saline Flush) 10 ml FLUSH ASDIRECTED PRN PRN Reason: Keep Vein Open Sodium Chloride (Saline Flush) 2.5 ml FLUSH ASDIRECTED PRN PRN Reason: Keep Vein Open Discontinued Medications Ciprofloxacin/Dextrose 400 mg/ (Premix) 200 mls @ 200 mls/hr IV NOW STA Stop: 01/10/18 22:25 Last Admin: 01/10/18 22:52 Dose: 200 mls/hr Metronidazole 500 mg/ Premix 100 mls @ 100 mls/hr IV ONETIME ONE Stop: 01/10/18 22:26 Last Infusion: 01/10/18 22:35 Dose: Infused Magnesium Sulfate 4 gm/ Premix 100 mls @ 25 mls/hr IV ONETIME ONE Stop: 01/11/18 12:11 Last Admin: 01/11/18 09:31 Dose: 25 mls/hr Loratadine (Claritin) 10 mg PO DAILY [facility] Last Admin: 01/11/18 12:57 Dose: Not Given Mometasone Furoate (Nasonex Anselmo) 17 gm ESTER DAILY [facility] Morphine Sulfate (Morphine) 2 mg IVPUSH Q2H PRN PRN Reason: Pain (severe 7-10) Stop: 01/11/18 22:36 Pantoprazole Sodium (Protonix Iv) 80 mg IVPUSH .BOLUS ONE Stop: 01/10/18 20:18 Last Admin: 01/10/18 20:28 Dose: 80 mg - Exam Quality Assessment: DVT Prophylaxis General: Alert, Oriented, Cooperative, No Acute Distress HEENT: Pupils Equal, Pupils Reactive, EOMI, Mucous Membr. Moist/[place] Neck: Supple Lungs: Clear to Auscultation, Normal Respiratory Effort Cardiovascular: Regular Rate, Regular Rhythm, Murmurs GI/Abdominal Exam: Normal Bowel Sounds, Soft, No Organomegaly, No Distention, No Mass, Tender (Female) Exam: Deferred Back Exam: Normal Inspection, Full Range of Motion Extremities: Normal Inspection, Normal Range of Motion, Non-Tender, No Pedal Edema, Normal Capillary Refill Peripheral Pulses: 2+: Radial (L), Radial (R), Posterior Tibial (L), Posterior Tibial (R), Dorsalis Pedis (L), Dorsalis Pedis (R) Skin: Warm, Dry, Intact Neurological: No New Focal Deficit Psy/Mental Status: Alert, Normal Affect, Normal Mood - Problem List & Annotations (1) Paroxysmal A-fib SNOMED Code(s): 907752332 Code(s): I48.0 - PAROXYSMAL ATRIAL FIBRILLATION Status: Chronic Priority : Medium Current Visit: Yes (2) Chronic anticoagulation SNOMED Code(s): 160354563 Code(s): Z79.01 - NURSE CHARGE RN (CURRENT) USE OF ANTICOAGULANTS Status: Chronic Priority: High Current Visit: Yes (3) Bright red blood per rectum SNOMED Code(s): 872523177 Code(s): K62.5 - HEMORRHAGE OF ANUS AND RECTUM Status: Acute Priority: High Current Visit: Yes (4) Hypothyroidism SNOMED Code(s): 26158238 Code(s): E03.9 - HYPOTHYROIDISM, UNSPECIFIED Status: Chronic Priority: Low Current Visit: Yes Qualifiers: Hypothyroidism type: unspecified Qualified Code(s): E03.9 - Hypothyroidism , unspecified (5) GERD (gastroesophageal reflux disease) SNOMED Code(s): 565112960 Code(s): K21.9 - GASTRO-ESOPHAGEAL REFLUX DISEASE WITHOUT ESOPHAGITIS Status: Chronic Priority: Low Current Visit: Yes Qualifiers: Esophagitis presence: esophagitis presence not specified Qualified Code(s) : K21.9 - Gastro-esophageal reflux disease without esophagitis (6) Colitis SNOMED Code(s): 18842799 Code(s): K52.9 - NONINFECTIVE GASTROENTERITIS AND COLITIS, UNSPECIFIED Status: Acute Priority: High Current Visit: Yes - Problem List Review Problem List Initiated/Reviewed/Updated: Yes - My Orders Last 24 Hours: My Active Orders 01/11/18 07:30 Levothyroxine 125 mcg PO ACBREAKFAST 01/11/18 08:00 Ciprofloxacin in D5W [Cipro in D5W 400 MG/200 ML] 400 mg Premix Bag 1 bag IV Q12H 01/11/18 09:00 Diltiazem [Cardizem CD] 120 mg PO DAILY 01/11/18 12:15 Famotidine [Pepcid] 20 mg PO BID 01/11/18 21:00 LORazepam [Ativan] 1 mg PO BEDTIME Loratadine [Claritin] 10 mg PO BEDTIME 01/11/18 Lunch Full Liquid Diet [DIET] 01/12/18 07:33 Calcium Carbonate [Tums] 1,000 mg PO ONETIME ONE 01/12/18 07:34 Potassium Chloride [Klor-Con M20] 40 meq PO ONETIME ONE 01/12/18 09:00 Aspirin 81 mg PO DAILY Calcium Carbonate/Vitamin D3 [Caltrate 600+D 1500 MG-400 Units] 1 tab PO DAILY Raloxifene [Evista] 60 mg PO DAILY 01/13/18 05:11 BASIC METABOLIC PANEL,BMP [CHEM] AM CBC WITH AUTO DIFF [HEME] AM - Plan Plan:: 82-year-old female admitted 01/10/18 for colitis and bright red per rectum with past medical history of proximal A. fib on Alloclassic, hypothyroidism, and GERD. Colitis: Leukocytosis improved from 15.75k to 14.28k this am. Cont. Cipro and Flagyl day 3. Afebrile overnight. Will cont. full liquid diet today as patient having some dark and bloody stool last night. Will most likely increase diet as tolerated tomorrow. IV Zofran for nausea and vomiting. Hgb down from 12 to 10.9 today cont. to monitor closely. Proximal A. fib: Cont. to hold Eliquis as active GI bleed. Cont. other home meds for rate control. Cont. telemetry. Replaced Mag this am goal >2.0 for a- fib. Currently in normal sinus rhythm. Hypothyroidism: Currently controlled we'll cont home medication GERD: Controlled cont home meds now with full liquids. VTE: SCD, no pharm secondary to acute GI bleed. Dispo: 1-2 days pending.
[2018-01-12] MEDS: Famotidine 20 MG Tab PO SCH ×2 (08:20→20:52)
[2018-01-12] MEDS: Calcium Carbonate/Vitamin D3 1500 MG-400 Units Tab PO SCH (08:22)
[2018-01-12] MEDS: Aspirin 81 MG Tab.Chew PO SCH ×2 (08:22→09:16)
[2018-01-12] MEDS: Diltiazem 120 MG Cap.CD PO SCH (08:22)
[2018-01-12] MEDS: Ciprofloxacin in D5W 400 MG in Premix Bag 1 BAG IV SCH ×4 (08:24→20:49)
[2018-01-12] MEDS: Raloxifene 60 MG Tab PO SCH (09:15)
[2018-01-12] MEDS ORDERED: Magnesium Sulfate/Water 4 GM in Premix Bag 1 BAG IV ONE (13:54)
[2018-01-12] MEDS: Loratadine 10 MG Tab PO SCH (20:51)
[2018-01-12] MEDS: LORazepam 1 MG Tab PO SCH (20:51)
[2018-01-13] MEDS: metroNIDAZOLE/Normal Saline 500 MG in Premix Bag 1 BAG IV SCH ×4 (03:45→21:49)
[2018-01-13 06:23] LABS: CHLORIDE,CL 109 mmol/L (98-107); SODIUM,NA 141 mmol/L (136-145)
[2018-01-13] MEDS: Levothyroxine 125 MCG Tab PO SCH (06:39)
[2018-01-13] MEDS: Ciprofloxacin in D5W 400 MG in Premix Bag 1 BAG IV SCH ×4 (08:00→20:31)
[2018-01-13] MEDS: Calcium Carbonate/Vitamin D3 1500 MG-400 Units Tab PO SCH (08:05)
[2018-01-13] MEDS: Diltiazem 120 MG Cap.CD PO SCH (08:05)
[2018-01-13] MEDS: Famotidine 20 MG Tab PO SCH ×2 (08:05→21:56)
[2018-01-13] MEDS: Raloxifene 60 MG Tab PO SCH (08:06)
--- NOTE | 2018-01-13 09:58 | PCM.PN ---
- General Info Date of Service: 01/13/18 Admission Dx/Problem (Free Text): Admission Diagnosis/Problem Admission Diagnosis/Problem Colitis Subjective Update: Doing ok this morning, reports 5 x diarrhea this morning, still bloody noted. No chest pain or SOB. Having a "sore" stomach. No nausea. Tolerating [place] diet well this morning, doesn't want to advance it. Functional Status: Reports: Pain Controlled, Tolerating Diet, Ambulating, Urinating - Review of Systems Pulmonary: Reports: No Symptoms. Denies: Shortness of Breath Cardiovascular: Reports: No Symptoms. Denies: Chest Pain Gastrointestinal: Reports: Abdominal Pain ("sore"), Diarrhea (x 5 this morning. ). Denies: Nausea, Vomiting Genitourinary: Reports: No Symptoms. Denies: Dysuria, Frequency, Burning, Pain Musculoskeletal: Reports: No Symptoms Neurological: Reports: No Symptoms Psychiatric: Reports: No Symptoms - Patient Data Vitals - Most Recent: Last Vital Signs Temp 97.6 F 01/13/18 08:00 Pulse 84 01/13/18 08:05 Resp 18 01/13/18 08:00 BP 117/55 L 01/13/18 08:05 Pulse Ox 97 01/13/18 08:00 Weight - Most Recent: 79.379 kg I&O - Last 24 Hours: Intake & Output 01/12/18 01/13/18 01/13/18 22:59 06:59 14:59 Intake Total 1520 780 200 Output Total 1400 1200 Balance 120 -420 200 Lab Results Last 24 Hours: Laboratory Results - last 24 hr 01/12/18 01/13/18 01/13/18 Range/Units 05:45 05:40 05:40 WBC 10.38 (4.0-11.0) K/uL RBC 3.59 L (4.30-5.90) M/uL Hgb 11.1 L (12.0-16.0) g/dL Hct 33.5 L (36.0-46.0) % MCV 93.3 (80.0-98.0) fL MCH 30.9 (27.0-32.0) pg MCHC 33.1 (31.0-37.0) g/dL RDW Std Deviation 49.1 (28.0-62.0) fl RDW Coeff of Berto 14 (11.0-15.0) % Plt Count 227 (150-400) K/uL MPV 10.30 (7.40-12.00) fL Neut % (Auto) 65.0 (48.0-80.0) % Lymph % (Auto) 18.5 (16.0-40.0) % [place] % (Auto) 11.9 (0.0-15.0) % Eos % (Auto) 3.9 (0.0-7.0) % Baso % (Auto) 0.7 (0.0-1.5) % Neut # (Auto) 6.8 H (1.4-5.7) K/uL Lymph # (Auto) 1.9 (0.6-2.4) K/uL [place] # (Auto) 1.2 H (0.0-0.8) K/uL Eos # (Auto) 0.4 (0.0-0.7) K/uL Baso # (Auto) 0.1 (0.0-0.1) K/uL Nucleated RBC % 0.0 /100WBC Nucleated RBCs # 0 K/uL Sodium 141 (136-145) mmol/L Potassium 3.7 (3.5-5.1) mmol/L Chloride 109 H (98-107) mmol/L Carbon Dioxide 24.0 (21.0-32.0) mmol/L BUN 5 L (7.0-18.0) mg/dL Creatinine 0.7 (0.6-1.0) mg/dL Est Cr Clr Drug Dosing 59.01 mL/min Estimated GFR (MDRD) > 60.0 ml/min Glucose 101 (74-106) mg/dL Calcium 8.3 L (8.5-10.1) mg/dL Magnesium 1.6 (1.5-2.0) mg/dL 01/13/18 Range/Units 08:07 WBC (4.0-11.0) K/uL RBC (4.30-5.90) M/uL Hgb (12.0-16.0) g/dL Hct (36.0-46.0) % MCV (80.0-98.0) fL MCH (27.0-32.0) pg MCHC (31.0-37.0) g/dL RDW Std Deviation (28.0-62.0) fl RDW Coeff of Berto (11.0-15.0) % Plt Count (150-400) K/uL MPV (7.40-12.00) fL Neut % (Auto) (48.0-80.0) % Lymph % (Auto) (16.0-40.0) % [place] % (Auto) (0.0-15.0) % Eos % (Auto) (0.0-7.0) % Baso % (Auto) (0.0-1.5) % Neut # (Auto) (1.4-5.7) K/uL Lymph # (Auto) (0.6-2.4) K/uL [place] # (Auto) (0.0-0.8) K/uL Eos # (Auto) (0.0-0.7) K/uL Baso # (Auto) (0.0-0.1) K/uL Nucleated RBC % /100WBC Nucleated RBCs # K/uL Sodium (136-145) mmol/L Potassium (3.5-5.1) mmol/L Chloride (98-107) mmol/L Carbon Dioxide (21.0-32.0) mmol/L BUN (7.0-18.0) mg/dL Creatinine (0.6-1.0) mg/dL Est Cr Clr Drug Dosing mL/min Estimated GFR (MDRD) ml/min Glucose (74-106) mg/dL Calcium (8.5-10.1) mg/dL Magnesium 1.7 (1.5-2.0) mg/dL Med Orders - Current: Current Medications Calcium Carbonate (Caltrate 600+D 1500 Mg-400 Units) 1 tab PO DAILY [facility] Last Admin: 01/13/18 08:05 Dose: 1 tab Diltiazem HCl (Cardizem Cd) 120 mg PO DAILY [facility] Last Admin: 01/13/18 08:05 Dose: 120 mg Famotidine (Pepcid) 20 mg PO BID [facility] Last Admin: 01/13/18 08:05 Dose: 20 mg Ciprofloxacin/Dextrose 400 mg/ (Premix) 200 mls @ 200 mls/hr IV Q12H [facility] Last Admin: 01/13/18 08:00 Dose: 200 mls/hr Metronidazole 500 mg/ Premix 100 mls @ 100 mls/hr IV Q6H [facility] Last Admin: 01/13/18 09:28 Dose: 100 mls/hr Levothyroxine Sodium (Levothyroxine) 125 mcg PO ACBREAKFAST [facility] Last Admin: 01/13/18 06:39 Dose: 125 mcg Loratadine (Claritin) 10 mg PO BEDTIME [facility] Last Admin: 01/12/18 20:51 Dose: 10 mg Lorazepam (Ativan) 1 mg PO BEDTIME [facility] Last Admin: 01/12/18 20:51 Dose: 0.5 mg Ondansetron HCl (Zofran) 4 mg IVPUSH Q4H PRN PRN Reason: Nausea Raloxifene HCl (Evista) 60 mg PO DAILY [facility] Last Admin: 01/13/18 08:06 Dose: 60 mg Sodium Chloride (Saline Flush) 10 ml FLUSH ASDIRECTED PRN PRN Reason: Keep Vein Open Sodium Chloride (Saline Flush) 2.5 ml FLUSH ASDIRECTED PRN PRN Reason: Keep Vein Open Discontinued Medications Aspirin (Aspirin) 81 mg PO DAILY [facility] Last Admin: 01/12/18 09:16 Dose: Not Given Calcium Carbonate/Glycine (Tums) 1,000 mg PO ONETIME ONE Stop: 01/12/18 07:34 Last Admin: 01/12/18 08:20 Dose: 1,000 mg Sodium Chloride (Normal Saline) 1,000 mls @ 125 mls/hr IV STAT [facility] Last Admin: 01/12/18 07:13 Dose: 125 mls/hr Ciprofloxacin/Dextrose 400 mg/ (Premix) 200 mls @ 200 mls/hr IV NOW STA Stop: 01/10/18 22:25 Last Admin: 01/10/18 22:52 Dose: 200 mls/hr Metronidazole 500 mg/ Premix 100 mls @ 100 mls/hr IV ONETIME ONE Stop: 01/10/18 22:26 Last Infusion: 01/10/18 22:35 Dose: Infused Magnesium Sulfate 4 gm/ Premix 100 mls @ 25 mls/hr IV ONETIME ONE Stop: 01/11/18 12:11 Last Admin: 01/11/18 09:31 Dose: 25 mls/hr Magnesium Sulfate 4 gm/ Premix 100 mls @ 50 mls/hr IV ONETIME ONE Stop: 01/12/18 15:53 Last Admin: 01/12/18 14:12 Dose: 50 mls/hr Loratadine (Claritin) 10 mg PO DAILY [facility] Last Admin: 01/11/18 12:57 Dose: Not Given Mometasone Furoate (Nasonex [place]) 17 gm ESTER DAILY [facility] Morphine Sulfate (Morphine) 2 mg IVPUSH Q2H PRN PRN Reason: Pain (severe 7-10) Stop: 01/11/18 22:36 Pantoprazole Sodium (Protonix Iv) 80 mg IVPUSH .BOLUS ONE Stop: 01/10/18 20:18 Last Admin: 01/10/18 20:28 Dose: 80 mg Potassium Chloride (Klor-Con M20) 40 meq PO ONETIME ONE Stop: 01/12/18 07:35 Last Admin: 01/12/18 08:22 Dose: 40 meq - Exam General: Alert, Oriented, Cooperative, No Acute Distress Neck: Supple Lungs: Clear to Auscultation, Normal Respiratory Effort Cardiovascular: Regular Rate, Regular Rhythm GI/Abdominal Exam: Normal Bowel Sounds, Soft, Non-Tender, No Organomegaly, No Distention, No Abnormal Bruit, No Mass, Pelvis Stable Extremities: Normal Inspection, Normal Range of Motion, Non-Tender, No Pedal Edema, Normal Capillary Refill Wound/Incisions: Healing Well Neurological: No New Focal Deficit Psy/Mental Status: Alert, Normal Affect, Normal Mood - Problem List & Annotations (1) Bright red blood per rectum SNOMED Code(s): 974133392 Code(s): K62.5 - HEMORRHAGE OF ANUS AND RECTUM Status: Acute Priority: High Current Visit: Yes (2) Colitis SNOMED Code(s): 17033415 Code(s): K52.9 - NONINFECTIVE GASTROENTERITIS AND COLITIS, UNSPECIFIED Status: Acute Priority: High Current Visit: Yes (3) Chronic anticoagulation SNOMED Code(s): 737403233 Code(s): Z79.01 - CONCESSION WORKER (CURRENT) USE OF ANTICOAGULANTS Status: Chronic Priority: High Current Visit: Yes (4) GERD (gastroesophageal reflux disease) SNOMED Code(s): 471544142 Code(s): K21.9 - GASTRO-ESOPHAGEAL REFLUX DISEASE WITHOUT ESOPHAGITIS Status: Chronic Priority: Low Current Visit: Yes Qualifiers: Esophagitis presence: esophagitis presence not specified Qualified Code(s) : K21.9 - Gastro-esophageal reflux disease without esophagitis (5) Hypothyroidism SNOMED Code(s): 80028037 Code(s): E03.9 - HYPOTHYROIDISM, UNSPECIFIED Status: Chronic Priority: Low Current Visit: Yes Qualifiers: Hypothyroidism type: unspecified Qualified Code(s): E03.9 - Hypothyroidism , unspecified (6) Paroxysmal A-fib SNOMED Code(s): 930256373 Code(s): I48.0 - PAROXYSMAL ATRIAL FIBRILLATION Status: Chronic Priority : Medium Current Visit: Yes - Problem List Review Problem List Initiated/Reviewed/Updated: Yes - My Orders Last 24 Hours: My Active Orders 01/13/18 09:29 CDIFF TOX A+B [OP] Routine CULTURE STOOL + CAMPY+SHIGATOX [RM] Routine - Plan Plan:: 82-year-old female admitted 01/10/18 for colitis and bright red per rectum with past medical history of proximal A. fib on Alloclassic, hypothyroidism, and GERD. 1. Colitis: Leukocytosis improved to 10,000 this am. had 5 x diarrhea this am, still bloody, will obtained stool studies. Continue Cipro and Flagyl day 4. Afebrile overnight. Continue [place] diet. Hgb stable 11.1. 2. Proximal A. fib: Stable. Continue to hold Eliquis as active GI bleed. Continue other home meds for rate control. Cont. telemetry. Replaced Mag this am goal >2.0 for a-fib. Currently in normal sinus rhythm. 3. Hypothyroidism: Controlled continue home medication 4. GERD: Controlled continue home meds VTE: SCD, no pharm secondary to acute GI bleed. Dispo: 1-2 days pending.
[2018-01-13] MEDS ORDERED: Magnesium Sulfate/Water 2 GM in Premix Bag 1 BAG IV ONE (11:09)
--- NOTE | 2018-01-13 11:43 | CR ---
EXAM DATE: 01/10/18 PATIENT'S AGE: 82 Patient: KAYLA HOMER Facility: [place], [place] Site . Site : 1935 Study: XRay Chest [id number]/16/2018 8:02:29 PM Ordering Physician: Cece Dawson Final Report: INDICATION: Chest pain, shortness of breath. TECHNIQUE: Chest radiograph 1 view COMPARISON: 07/07/2016. FINDINGS: Cardiovascular and mediastinum: The heart silhouette is normal in size and morphology. The mediastinum is normal in appearance. Lungs and pleural spaces: Both lungs are unremarkable in appearance. No sign of pleural effusion seen. No pneumothorax is identified. Bones and soft tissues: No significant findings. IMPRESSION: 1. No acute cardiopulmonary disease is seen. Dictated by Bobby Bowens MD @ 01/10/2018 8:10:18 PM Dictated by: Bobby Bowens MD @ 01/10/2018 20:10:25 (Electronic Signature) Report Signed by Proxy. [facility]ITAL[facility]uel[facility]
[2018-01-13] MEDS ORDERED: Potassium Chloride 20 MEQ Tab.ER PO ONE (11:45)
--- NOTE | 2018-01-13 12:42 | CT ---
EXAM DATE: 01/10/18 PATIENT'S AGE: 82 Patient: KAYLA HOMER Facility: [place], [place] Site . Site : 1935 Study: CT Abdomen/Pelvis [id number]/16/2018 8:12:30 PM Ordering Physician: Cece Dawson Final Report: INDICATION: Bloody stool. Hematuria. TECHNIQUE: CT abdomen and pelvis without contrast. COMPARISON: None available FINDINGS: Lower chest: Unremarkable. Liver: Mildly increased hepatic attenuation which could be seen with amiodarone therapy or certain deposition disorders, although could be within normal limits. Spleen: Unremarkable. Pancreas: Unremarkable. Gallbladder and bile ducts: Punctate dependent gallstones within the gallbladder. Adrenal glands: Unremarkable. Kidneys: Left renal parapelvic cysts and cortical thinning. Subcentimeter right renal low-density lesions could represent cysts, although not well evaluated. No hydronephrosis. A subcentimeter dense focus in the right renal lower pole, nonspecific. No discrete, measurable ureteral calcifications. GI tract: A small duodenal diverticulum. No mechanical bowel obstruction. No evidence of appendicitis. Ascending colon wall thickening with adjacent stranding consistent with colitis. Left colonic diverticulosis without diverticulitis. Vascular structures: Arthrosclerotic changes. Lymph nodes: Few shotty upper abdominal lymph nodes, nonspecific. Miscellaneous: No significant free fluid or free air. Slightly increased hazy attenuation in the central mesenteric fat is nonspecific. Pelvic Organs: A contracted bladder. No gross uterine abnormality seen. Bones: A right hip screw and lissett. A compression deformity of the L3 vertebral body with an ill-defined lucency underlying the superior end plate. IMPRESSION: Colitis involving the ascending colon. Colonoscopy is recommended following treatment to exclude an underlying lesion. Left colonic diverticulosis without diverticulitis. No obstructive uropathy or discrete, measurable ureterolithiasis. Few renal cysts and subcentimeter low-density lesions. An L3 compression deformity with an ill-defined lucency underlying the superior endplate, concerning for a recent injury. Correlate clinically. Dictated by Dale Brandon MD @ 01/10/2018 8:37:51 PM Dictated by: Dale Brandon MD @ 01/10/2018 20:38:59 (Electronic Signature) Report Signed by Proxy. [facility]
[2018-01-13] MEDS: LORazepam 1 MG Tab PO SCH (21:54)
[2018-01-13] MEDS: Loratadine 10 MG Tab PO SCH (21:56)
[2018-01-14] MEDS: metroNIDAZOLE/Normal Saline 500 MG in Premix Bag 1 BAG IV SCH ×2 (03:34→12:26)
[2018-01-14 06:00] LABS: CHLORIDE,CL 109 mmol/L (98-107); SODIUM,NA 141 mmol/L (136-145)
[2018-01-14] MEDS: Levothyroxine 125 MCG Tab PO SCH (06:30)
[2018-01-14] MEDS ORDERED: Magnesium Sulfate/Water 4 GM in Premix Bag 1 BAG IV ONE (07:39)
--- NOTE | 2018-01-14 09:12 | PCM.DCSUM1 ---
Discharge Summary - Hospital Course Brief History: 82-year-old female presenting emergency department with chief complaint of bright red blood per rectum 1 day with past medical history of paroxysmal A. fib on Eliquis, hypothyroidism, and GERD. Patient states that today she went to physical therapy in [place] for her lower back. On her way home she began to feel "ill". She laid down and at approximately 4 PM she had some diarrhea. When she wiped she noticed blood on the tissue and then noticed bright red blood in the toilet. States that she has had somewhat of a sore stomach but has been doing physical therapy to strengthen her core so attributed it to that. She denies any history of abdominal surgery other than a laparoscopic tubal ligation many years ago. She does have a history of diverticulosis and had a colonoscopy 8-10 years ago. Patient also has a history of proximal A. fib. States that this was diagnosed approximately 1 year ago. She initially was started on Coumadin but then had problems. She was switched to Eliquis which she has been taking and since then has not had any further issues. She states that she only had one episode of A. fib and then converted on her own back to normal sinus rhythm. She is on Cardizem for rate control. She does see Dr. Briceño, asset administrator, [facility]. States that she had a stress test as well as echocardiogram approximately 1 year ago. She has history of moderate to severe mitral regurg but states that it has been unchanged on echocardiogram. No reported orthopnea, paroxysmal nocturnal dyspnea , or pedal edema. Emergency department: Leukocytosis 15 K, unremarkable CMP, EKG normal sinus rhythm with no acute ST changes, urinalysis and INR unremarkable. CT abdomen and pelvis showing colitis involving the ascending colonoscopy. There was also left colonic diverticulosis without diverticulitis. There were a few renal cysts and subcentimeter low-density lesions. Also noted a L3 compression deformity with an ill-defined lucency underlying the superior endplate concerning for recent injury. Patient was admitted for colitis. 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 OF ANTICOAGULANTS Status: Chronic Priority: High Current Visit: Yes (4) GERD (gastroesophageal reflux disease) SNOMED Code(s): 116626147 ICD Code: K21.9 - GASTRO-ESOPHAGEAL REFLUX DISEASE WITHOUT ESOPHAGITIS Status: Chronic Priority: Low Current Visit: Yes Qualifiers: Esophagitis presence: esophagitis presence not specified Qualified Code(s) : K21.9 - Gastro-esophageal reflux disease without esophagitis (5) Hypothyroidism SNOMED Code(s): 79808204 ICD Code: E03.9 - HYPOTHYROIDISM, UNSPECIFIED Status: Chronic Priority: Low Current Visit: Yes Qualifiers: Hypothyroidism type: unspecified Qualified Code(s): E03.9 - Hypothyroidism , unspecified (6) Paroxysmal A-fib SNOMED Code(s): 249415400 ICD Code: I48.0 - PAROXYSMAL ATRIAL FIBRILLATION Status: Chronic Priority : Medium Current Visit: Yes - Patient Summary/Data Consults: Consultations 01/10/18 22:35 Consult to Physician [CONS] Routine - Patient Instructions Diet: Heart Healthy Diet, GI Soft/Low Residue/Low Fiber (slowly advance to regular over next couple days.) Activity: As Tolerated, No Strenuous Activities, Rest and Relax Today Driving: Do Not Drive Showering/Bathing: May Shower Notify Provider of: Fever, Increased Pain, Swelling and Redness, Drainage, Nausea and/or Vomiting Other/Special Instructions: HOLD Eliquis until instructed to restart - Discharge Plan Prescriptions/Med Rec: Ciprofloxacin HCl [Cipro] 500 mg PO BID #10 tablet L.acidoph,Paracasei, B.lactis [Probiotic] 1 each PO DAILY #30 capsule metroNIDAZOLE [Flagyl] 500 mg PO Q8H #15 tab Home Medications: Home Meds Aspirin 81 mg PO DAILY 07/07/16 [History] Calcium Phosphate Trib/Vit D3 [Calcium + Vitamin D3 Gummies] 1 each PO DAILY 08/12 [History] LORazepam 1 mg PO DAILY 07/07/16 [History] Levothyroxine Sodium [Synthroid] 125 mcg PO DAILY 07/07/16 [History] Loratadine [Claritin] 10 mg PO DAILY 07/07/16 [History] Lutein/Minerals/Vit A,C & E [Ocuvite] 1 tab PO DAILY 07/07/16 [History] Mometasone Furoate [Nasonex [place]] 17 gm ESTER DAILY 07/07/16 [History] Raloxifene [Evista] 60 mg PO DAILY 07/07/16 [History] Diltiazem HCl [Diltiazem 24Hr Cd] 120 mg PO DAILY 01/10/18 [History] Famotidine [Pepcid] 20 mg PO BID 01/10/18 [History] Triamcinolone Acetonide [Triamcinolone Acetonide 0.025%] TOP BID 01/10/18 [ History] Ciprofloxacin HCl [Cipro] 500 mg PO BID #10 tablet 01/14/18 [Rx] L.acidoph,Paracasei, B.lactis [Probiotic] 1 each PO DAILY #30 capsule 01/14/18 [ Rx] metroNIDAZOLE [Flagyl] 500 mg PO Q8H #15 tab 01/14/18 [Rx] Referrals: Hazel Rodriguez DO [Primary Care Provider] - - Discharge Summary/Plan Comment DC Time >30 min.: No Discharge Summary/Plan Comment: Discharge Diagnoses: Lower GI bleed Colitis Paroxysmal A fib Chronic anticoagulation Hypothyroidism GERD Regine was admitted and treated for loewr GI bleed due to bright red blood per rectum. She reports slight tenderness to LLQ, but was unsure of where this came from and felt it was from PT and sore abdominal muscles from working on her core with PT. She was started on Ciprofloxacin and Flagyl due to leukocytosis on admission. Hemoccult was positive for blood. Stool studies so far negative for Campylobacter and C diff, others still pending. 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 She is aware of this and this appointment will be arranged. No blood products were needed, hgb has remained stable at 10.9 today, drop from 12 on admission. Eliquis and ASA has been held. She was encouraged to hold these until follow up with PCP and GI specialist. She is to start advancing diet slowly, staying away from high fiber diet for the next week and then adding it back with raw vegetables. She verbalized understanding of this. She will be continued on Cipro and Flagyl for 5 more days, 10 day total course, leukocytosis resolved and afebrile. She will be discharged home today. She is to return to PCP, next week and follow up as scheduled with GI specialist for colonoscopy. She is to return to ED or clinic if concerns should arise, especially if she has further mitch blood per rectum, becomes dizzy, lightheaded , or has increased fatigue or weakness. - General Info Date of Service: 01/14/18 Admission Dx/Problem (Free Text: Admission Diagnosis/Problem Admission Diagnosis/Problem Colitis Subjective Update: Feeling good today. No stools since yesterday. Hgb stable. No abdominal pain. Tolerating soft diet. No chest pain or SOB. Reports she is ready to go home. Functional Status: Reports: Pain Controlled - Review of Systems General: Reports: No Symptoms HEENT: Reports: No Symptoms. Denies: Headaches, Sore Throat, Visual Changes Pulmonary: Reports: No Symptoms. Denies: Shortness of Breath, Cough, Sputum Cardiovascular: Reports: No Symptoms. Denies: Chest Pain Gastrointestinal: Reports: No Symptoms. Denies: Abdominal Pain, Constipation, Diarrhea, Nausea, Vomiting Genitourinary: Reports: No Symptoms. Denies: Dysuria, Frequency, Burning Musculoskeletal: Reports: No Symptoms. Denies: Neck Pain Neurological: Reports: No Symptoms. Denies: Confusion Psychiatric: Reports: No Symptoms. Denies: Confusion - Patient Data Vitals - Most Recent: Last Vital Signs Temp 97.1 F 01/14/18 08:00 Pulse 77 01/14/18 08:00 Resp 18 01/14/18 08:00 BP 128/62 01/14/18 08:00 Pulse Ox 95 01/14/18 08:00 Weight - Most Recent: 79.379 kg I&O - Last 24 hours: Intake & Output 01/13/18 01/14/18 01/14/18 22:59 06:59 14:59 Intake Total 840 520 Output Total 1300 1050 Balance -460 -530 Lab Results - Last 24 hrs: Laboratory Results - last 24 hr 01/14/18 01/14/18 Range/Units 04:58 04:58 WBC 7.94 (4.0-11.0) K/uL RBC 3.50 L (4.30-5.90) M/uL Hgb 10.9 L (12.0-16.0) g/dL Hct 32.5 L (36.0-46.0) % MCV 92.9 (80.0-98.0) fL MCH 31.1 (27.0-32.0) pg MCHC 33.5 (31.0-37.0) g/dL RDW Std Deviation 48.9 (28.0-62.0) fl RDW Coeff of Berto 14 (11.0-15.0) % Plt Count 237 (150-400) K/uL MPV 10.30 (7.40-12.00) fL Neut % (Auto) 59.5 (48.0-80.0) % Lymph % (Auto) 20.7 (16.0-40.0) % Gonzales % (Auto) 14.2 (0.0-15.0) % Eos % (Auto) 4.8 (0.0-7.0) % Baso % (Auto) 0.8 (0.0-1.5) % Neut # (Auto) 4.7 (1.4-5.7) K/uL Lymph # (Auto) 1.6 (0.6-2.4) K/uL Gonzales # (Auto) 1.1 H (0.0-0.8) K/uL Eos # (Auto) 0.4 (0.0-0.7) K/uL Baso # (Auto) 0.1 (0.0-0.1) K/uL Nucleated RBC % 0.0 /100WBC Nucleated RBCs # 0 K/uL Sodium 141 (136-145) mmol/L Potassium 4.1 (3.5-5.1) mmol/L Chloride 109 H (98-107) mmol/L Carbon Dioxide 26.1 (21.0-32.0) mmol/L BUN 4 L (7.0-18.0) mg/dL Creatinine 0.7 (0.6-1.0) mg/dL Est Cr Clr Drug Dosing 59.01 mL/min Estimated GFR (MDRD) > 60.0 ml/min Glucose 94 (74-106) mg/dL Calcium 8.4 L (8.5-10.1) mg/dL Magnesium 1.5 (1.5-2.0) mg/dL Med Orders - Current: Current Medications Calcium Carbonate (Caltrate 600+D 1500 Mg-400 Units) 1 tab PO DAILY [facility] Last Admin: 01/13/18 08:05 Dose: 1 tab Diltiazem HCl (Cardizem Cd) 120 mg PO DAILY [facility] Last Admin: 01/13/18 08:05 Dose: 120 mg Famotidine (Pepcid) 20 mg PO BID [facility] Last Admin: 01/13/18 21:56 Dose: 20 mg Ciprofloxacin/Dextrose 400 mg/ (Premix) 200 mls @ 200 mls/hr IV Q12H [facility] Last Admin: 01/13/18 20:31 Dose: 200 mls/hr Metronidazole 500 mg/ Premix 100 mls @ 100 mls/hr IV Q6H [facility] Last Admin: 01/14/18 03:34 Dose: 100 mls/hr Magnesium Sulfate 4 gm/ Premix 100 mls @ 50 mls/hr IV ONETIME ONE Stop: 01/14/18 09:38 Levothyroxine Sodium (Levothyroxine) 125 mcg PO ACBREAKFAST [facility] Last Admin: 01/14/18 06:30 Dose: 125 mcg Loratadine (Claritin) 10 mg PO BEDTIME [facility] Last Admin: 01/13/18 21:56 Dose: 10 mg Lorazepam (Ativan) 1 mg PO BEDTIME [facility] Last Admin: 01/13/18 21:54 Dose: 0.5 mg Ondansetron HCl (Zofran) 4 mg IVPUSH Q4H PRN PRN Reason: Nausea Raloxifene HCl (Evista) 60 mg PO DAILY [facility] Last Admin: 01/13/18 08:06 Dose: 60 mg Sodium Chloride (Saline Flush) 10 ml FLUSH ASDIRECTED PRN PRN Reason: Keep Vein Open Sodium Chloride (Saline Flush) 2.5 ml FLUSH ASDIRECTED PRN PRN Reason: Keep Vein Open Discontinued Medications Aspirin (Aspirin) 81 mg PO DAILY [facility] Last Admin: 01/12/18 09:16 Dose: Not Given Calcium Carbonate/Glycine (Tums) 1,000 mg PO ONETIME ONE Stop: 01/12/18 07:34 Last Admin: 01/12/18 08:20 Dose: 1,000 mg Sodium Chloride (Normal Saline) 1,000 mls @ 125 mls/hr IV STAT JC Last Admin: 01/12/18 07:13 Dose: 125 mls/hr Ciprofloxacin/Dextrose 400 mg/ (Premix) 200 mls @ 200 mls/hr IV NOW STA Stop: 01/10/18 22:25 Last Admin: 01/10/18 22:52 Dose: 200 mls/hr Metronidazole 500 mg/ Premix 100 mls @ 100 mls/hr IV ONETIME ONE Stop: 01/10/18 22:26 Last Infusion: 01/10/18 22:35 Dose: Infused Magnesium Sulfate 4 gm/ Premix 100 mls @ 25 mls/hr IV ONETIME ONE Stop: 01/11/18 12:11 Last Admin: 01/11/18 09:31 Dose: 25 mls/hr Magnesium Sulfate 4 gm/ Premix 100 mls @ 50 mls/hr IV ONETIME ONE Stop: 01/12/18 15:53 Last Admin: 01/12/18 14:12 Dose: 50 mls/hr Magnesium Sulfate 2 gm/ Premix 50 mls @ 50 mls/hr IV ONETIME ONE Stop: 01/13/18 12:08 Last Admin: 01/13/18 11:19 Dose: 50 mls/hr Loratadine (Claritin) 10 mg PO DAILY [facility] Last Admin: 01/11/18 12:57 Dose: Not Given Mometasone Furoate (Nasonex [place]) 17 gm ESTER DAILY [facility] Morphine Sulfate (Morphine) 2 mg IVPUSH Q2H PRN PRN Reason: Pain (severe 7-10) Stop: 01/11/18 22:36 Pantoprazole Sodium (Protonix Iv) 80 mg IVPUSH .BOLUS ONE Stop: 01/10/18 20:18 Last Admin: 01/10/18 20:28 Dose: 80 mg Potassium Chloride (Klor-Con M20) 40 meq PO ONETIME ONE Stop: 01/12/18 07:35 Last Admin: 01/12/18 08:22 Dose: 40 meq Potassium Chloride (Klor-Con M20) 40 meq PO ONETIME ONE Stop: 01/13/18 11:46 Last Admin: 01/13/18 12:01 Dose: 40 meq - Exam Quality Assessment: Denies: Supplemental Oxygen General: Reports: Alert, Oriented, Cooperative Neck: Reports: Supple Lungs: Reports: Clear to Auscultation, Normal Respiratory Effort Cardiovascular: Reports: Regular Rate, Regular Rhythm, Murmurs GI/Abdominal Exam: Normal Bowel Sounds, Soft, Non-Tender, No Organomegaly, No Distention, No Abnormal Bruit, No Mass, Pelvis Stable Back Exam: Reports: Normal Inspection, Full Range of Motion Extremities: Normal Inspection, Normal Range of Motion, Non-Tender, No Pedal Edema, Normal Capillary Refill Wound/Incisions: Reports: Healing Well Neurological: Reports: No New Focal Deficit Psy/Mental Status: Reports: Alert, Normal Affect, Normal Mood *Q Meaningful Use (DIS) - VTE *Q VTE Criteria *Q: - Stroke *Q Stroke Criteria *Q: - AMI *Q AMI Criteria *Q:
[2018-01-14] MEDS: Calcium Carbonate/Vitamin D3 1500 MG-400 Units Tab PO SCH (09:20)
[2018-01-14] MEDS: Famotidine 20 MG Tab PO SCH (09:20)
[2018-01-14] MEDS: Diltiazem 120 MG Cap.CD PO SCH (09:22)
[2018-01-14] MEDS: Raloxifene 60 MG Tab PO SCH (09:42)
[2018-01-14] MEDS: Ciprofloxacin in D5W 400 MG in Premix Bag 1 BAG IV SCH ×2 (11:24)
[2018-01-14 11:35] VITALS: BP 138/70
== END 2018-01-14 14:30 | disposition home or self-care (01) | DRG 392 ==
LOC: MW.ED 17:49 → INTOOBSV 21:33 → MW.MS 21:33 → UNDOADMOB 21:33 → OBSVTOIN 21:33 → MW.MS 01-12 16:04 → UNDODISIN 01-14 14:30
PROVIDERS: ADMIT Family Medicine; ATTEND Family Medicine
DX: K52.9 Noninfective gastroenteritis and colitis, unspecified (principal); K62.5 Hemorrhage of anus and rectum; I48.91 Unspecified atrial fibrillation; K57.30 Diverticulosis of large intestine without perforation or abscess without bleeding; K21.9 Gastro-esophageal reflux disease without esophagitis; I48.0 Paroxysmal atrial fibrillation; E03.9 Hypothyroidism, unspecified; I10 Essential (primary) hypertension; Z79.01 Long term (current) use of anticoagulants; Z88.0 Allergy status to penicillin; Z88.8 Allergy status to other drugs, medicaments and biological substances; Z79.899 Other long term (current) drug therapy
CPT/HCPCS: 36415; 71045; 74176; 80053; 81001; 85025; 85610; 86850; 86900; 86901; 87086; 93005; 96361; 96365; 96375; 99285; C9113; J7040; 80048; 82272; 83735; 87046; 87324; 87899; 96366; 96367; 99283; A9270-GY; G0378; J0744; J3475